=== PATIENT | female | born 1945 | race American Indian/Alaskan Native ===

== ENCOUNTER 2022-01-24 13:40 | Outpatient (CLI) | payer MEDICARE | END 2022-01-24 13:41 | disposition home or self-care (01) | LOC: WOUND 13:40 | PROVIDERS: ATTEND Surgery | DX: E10.621 Type 1 diabetes mellitus with foot ulcer (principal); L97.522 Non-pressure chronic ulcer of other part of left foot with fat layer exposed; I10 Essential (primary) hypertension; F32.9 Major depressive disorder, single episode, unspecified; Z86.16 Personal history of COVID-19; Z79.4 Long term (current) use of insulin; Z79.899 Other long term (current) drug therapy ==

== ENCOUNTER 2022-02-07 13:11 | Outpatient (CLI) | payer MEDICARE ==
[2022-02-07] MEDS ORDERED: LIDOCAINE (4%) 40 MG/ML TOPICAL SOLN 50 ML BOTTLE TP ONE (13:39)
== END 2022-02-07 13:12 | disposition home or self-care (01) ==
LOC: WOUND 13:11
PROVIDERS: ATTEND Surgery
DX: E10.621 Type 1 diabetes mellitus with foot ulcer (principal); L97.522 Non-pressure chronic ulcer of other part of left foot with fat layer exposed; I10 Essential (primary) hypertension; Z79.4 Long term (current) use of insulin; Z79.899 Other long term (current) drug therapy

== ENCOUNTER 2022-02-21 11:43 | Outpatient (CLI) | payer MEDICARE ==
[2022-02-21] MEDS ORDERED: LIDOCAINE (4%) 40 MG/ML TOPICAL SOLN 50 ML BOTTLE TP ONE (13:38)
== END 2022-02-21 11:44 | disposition home or self-care (01) ==
LOC: WOUND 11:43
PROVIDERS: ATTEND Surgery
DX: E10.621 Type 1 diabetes mellitus with foot ulcer (principal); L97.522 Non-pressure chronic ulcer of other part of left foot with fat layer exposed; I10 Essential (primary) hypertension; Z79.4 Long term (current) use of insulin; Z79.899 Other long term (current) drug therapy

== ENCOUNTER 2022-03-07 13:31 | Outpatient (CLI) | payer MEDICARE ==
[2022-03-07] MEDS ORDERED: LIDOCAINE (4%) 40 MG/ML TOPICAL SOLN 50 ML BOTTLE TP SCH (14:30)
== END 2022-03-07 13:32 | disposition home or self-care (01) ==
LOC: WOUND 13:31
PROVIDERS: ATTEND Surgery
DX: E10.621 Type 1 diabetes mellitus with foot ulcer (principal); L97.522 Non-pressure chronic ulcer of other part of left foot with fat layer exposed; I10 Essential (primary) hypertension; Z79.4 Long term (current) use of insulin; Z79.899 Other long term (current) drug therapy

== ENCOUNTER 2022-05-01 01:27 | Inpatient (IN) | payer MEDICAID, MEDICARE ==
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
[2022-05-01 03:20] LABS: Basophils # (Auto) 0.1 K/mm3 (0.0-0.1); Basophils % (Auto) 1.3 % (0.0-1.8); Eosinophils # (Auto) 0.2 K/mm3 (0.0-0.4); Eosinophils % (Auto) 1.9 % (0.0-4.3); Hematocrit 35.8 % (30.3-42.9); Hemoglobin 11.5 gm/dl (10.1-14.3); Lymphocytes # (Auto) 2.2 K/mm3 (1.2-5.4); Lymphocytes % (Auto) 22.2 % (13.4-35.0); Mean Corpuscular HGB Conc 32 % (30-34); Mean Corpuscular Volume 79 fl (79-97); Monocytes % (Auto) 10.3 % (0.0-7.3); Platelet Count 388 K/mm3 (140-440); Red Blood Count 4.52 M/mm3 (3.65-5.03)
[2022-05-01 03:43] LABS: Albumin 3.5 g/dL (3.9-5)
[2022-05-01] MEDS ORDERED: SODIUM CHLORIDE 0.9% 1000 ML 1,000 ML IV ONE (06:25)
[2022-05-01 09:20] LABS: Hyaline Casts,Urine 1 /LPF; Mucus,Urine FEW /HPF
[2022-05-01 09:25] LABS: Color,Urine Yellow (Yellow)
[2022-05-01] MEDS ORDERED: NIFEDIPINE 30 MG PO SCH (20:00)
[2022-05-01] MEDS ORDERED: NON-FORMULARY EACH (Simvastatin 20 MG) PO SCH (22:00)
[2022-05-01] MEDS ORDERED: SEROQUEL 25 MG PO SCH (22:00)
[2022-05-01] MEDS ORDERED: DONEPEZIL 10 MG PO SCH (22:00)
[2022-05-01] MEDS ORDERED: METHIMAZOLE 5 MG PO SCH (22:00)
[2022-05-01] MEDS ORDERED: NON-FORMULARY EACH (Carvedilol 25 MG) PO SCH (22:00)
[2022-05-02] MEDS: DONEPEZIL 10 MG TAB PO SCH ×2 (00:02→23:44)
[2022-05-02] MEDS: carvediloL 25 MG TAB PO SCH ×3 (00:03→23:44)
[2022-05-02] MEDS: NIFEdipine XL 30 MG TAB PO SCH ×2 (00:03→10:59)
[2022-05-02] MEDS: methIMAzole 5 MG TAB PO SCH ×3 (00:03→23:45)
[2022-05-02] MEDS: PRAVASTATIN 40 MG TAB PO SCH ×2 (00:04→23:44)
[2022-05-02] MEDS: QUEtiapine 25 MG TAB PO SCH ×3 (00:05→23:44)
[2022-05-02] MEDS ORDERED: VALPROIC ACID 250 MG/5 ML ORAL LIQD PO ONE (12:51)
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
[2022-05-02] MEDS: VALPROIC ACID 250 MG/5 ML ORAL LIQD PO SCH (18:26)
[2022-05-03 00:07] LABS: Amphetamine Screen,Urine PRESUMPTIVE NEGATIVE; Benzodiazepines Screen,Urine PRESUMPTIVE NEGATIVE; Cannabinoid Screen,Urine PRESUMPTIVE NEGATIVE; Cocaine Screen,Urine PRESUMPTIVE NEGATIVE; Methadone Screen,Urine PRESUMPTIVE NEGATIVE; Opiate Screen,Urine PRESUMPTIVE NEGATIVE
--- NOTE | 2022-05-03 07:38 | Event Note ---
Date: 05/03/22 S: Patient refusing meds. Otherwise no events reported overnight O: Vital Signs - 8 hr 05/02/22 05/02/22 05/02/22 23:44 23:45 23:47 Temperature 97.0 F L Pulse Rate 85 73 Respiratory 18 Rate Blood Pressure 151/73 Blood Pressure 151/73 [Left] O2 Sat by Pulse 98 95 Oximetry 05/03/22 06:53 Temperature Pulse Rate 85 Respiratory 18 Rate Blood Pressure Blood Pressure 144/85 [Left] O2 Sat by Pulse 97 Oximetry A: Dementia with behavioral disturbance P: 1013/awaiting inpatient psych
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
[2022-05-03] MEDS: carvediloL 25 MG TAB PO SCH (12:47)
[2022-05-03] MEDS: NIFEdipine XL 30 MG TAB PO SCH (12:47)
[2022-05-03] MEDS: methIMAzole 5 MG TAB PO SCH (12:47)
[2022-05-03] MEDS: VALPROIC ACID 250 MG/5 ML ORAL LIQD PO SCH (12:48)
[2022-05-03] MEDS: QUEtiapine 25 MG TAB PO SCH (12:48)
[2022-05-03] MEDS ORDERED: risperiDONE 0.25 MG TAB PO SCH (22:00)
[2022-05-04] MEDS: DONEPEZIL 10 MG TAB PO SCH ×2 (02:56→22:00)
[2022-05-04] MEDS: carvediloL 25 MG TAB PO SCH ×3 (02:56→22:00)
[2022-05-04] MEDS: VALPROIC ACID 250 MG/5 ML ORAL LIQD PO SCH ×3 (02:56→22:00)
[2022-05-04] MEDS: PRAVASTATIN 40 MG TAB PO SCH ×2 (02:56→22:00)
[2022-05-04] MEDS: methIMAzole 5 MG TAB PO SCH ×3 (02:57→22:00)
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
[2022-05-04] MEDS: risperiDONE 0.25 MG TAB PO SCH ×2 (10:33→22:00)
[2022-05-04] MEDS: NIFEdipine XL 30 MG TAB PO SCH (10:33)
[2022-05-04 11:19] LABS: Albumin 3.7 g/dL (3.9-5); Calcium 9.7 mg/dL (8.4-10.2)
--- NOTE | 2022-05-04 11:59 | Event Note ---
Date: 05/04/22 S: No events reported overnight O: Vital Signs - 8 hr 05/04/22 05/04/22 11:01 11:03 Temperature 98.7 F Pulse Rate 75 Respiratory 18 Rate Blood Pressure 100/63 [Left] O2 Sat by Pulse 97 97 Oximetry A: Dementia with behavioral disturbances P: 1013/awaiting inpatient psych
[2022-05-04] MEDS ORDERED: SODIUM CHLORIDE 0.9% 1000 ML 1,000 ML IV ONE ×2 (12:10)
[2022-05-04 17:35] LABS: Calcium 8.5 mg/dL (8.4-10.2)
--- NOTE | 2022-05-04 18:52 | Emergency Department Report ---
Blank Doc - Documentation Documentation: 550 76-year-old female who is being evaluated for dementia with psychotic beha vior. Patient is on a 1013, and had been accepted at a inpatient psychiatric facility pending improvement of her BUN and creatinine. However, after IV fluids, her BUN and creatinine are still stable at 44 and 2.2. With this, and no previous BUN and creatinines to compare, the patient will be admitted, here to inpatient medicine service for acute kidney injury.
[2022-05-04] MEDS ORDERED: ONDANSETRON 4 MG/2 ML INJ IV PRN (22:18)
[2022-05-04] MEDS ORDERED: ACETAMINOPHEN 325 MG TAB PO PRN (22:18)
[2022-05-04] MEDS ORDERED: oxyCODONE /ACETAMINOPHEN 5-325MG TAB PO PRN (22:23)
[2022-05-04] MEDS ORDERED: METOCLOPRAMIDE 10 MG/2 ML INJ IV PRN ×2 (22:23→22:38)
[2022-05-04] MEDS: HEPARIN 5,000 UNIT/1 ML VIAL SUB-Q SCH (23:00)
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
[2022-05-05] MEDS ORDERED: HALOPERIDOL LACTATE 5 MG/1 ML INJ IM PRN (09:00)
--- NOTE | 2022-05-05 11:14 | Consultation ---
History of Present Illness - Reason for Consult acute renal failure - History of Present Illness 76-year-old -Lithuanian female with past medical history of hypertension and what seems to be underlying psychiatric disorder, presented to emergency department secondary to worsening altered mentation and behavioral disturbances at her residence. Nephrology was consulted with labs initially concerning for an acute kidney injury. She does have documented history of hypertension and when discussed with patient she did state that she has had a previous issue with chronic kidney disease though she is unaware of the name of her previous database administration manager. Per patient she believes the database administration manager was in [place]. Unclear how good of a historian patient is at present time. Nevertheless nephrology was consulted for further management of renal injury. Past History Past Medical History: hypertension Past Surgical History: No surgical history Social history: no significant social history Family history: no significant family history Medications and Allergies Allergies Allergy/AdvReac Type Severity Reaction Status Date / Time No Known Allergies Allergy Unverified 05/01/22 08:15 Home Medications Medication Instructions Recorded Confirmed Last Taken Type Aliskiren 300 mg PO DAILY 05/01/22 05/01/22 Unknown History Methimazole 5 mg PO BID 05/01/22 05/01/22 Unknown History NIFEdipine 90 mg PO DAILY 05/01/22 05/01/22 Unknown History SEROquel 25 mg PO BID 05/01/22 05/01/22 Unknown History Simvastatin 20 mg PO DAILY 05/01/22 05/01/22 Unknown History carvediloL 25 mg PO BID 05/01/22 05/01/22 Unknown History cloNIDine 0.3 mg PO TID 05/01/22 05/01/22 Unknown History donepeziL 10 mg PO QHS 05/01/22 05/01/22 Unknown History Active Meds: Active Medications Acetaminophen (Acetaminophen 325 Mg Tab) 650 mg PO Q4H PRN PRN Reason: Pain MILD(1-3)/Fever >100.5/CUEVAS Carvedilol (Carvedilol 25 Mg Tab) 25 mg PO BID [facility] Last Admin: 05/04/22 22:00 Dose: 25 mg Donepezil HCl (Donepezil 10 Mg Tab) 10 mg PO QHS [facility] Last Admin: 05/04/22 22:00 Dose: 10 mg Haloperidol Lactate (Haloperidol Lactate 5 Mg/1 Ml Inj) 5 mg IM Q6H PRN PRN Reason: Agitation Last Admin: 05/05/22 08:30 Dose: 5 mg Heparin Sodium (Porcine) (Heparin 5,000 Unit/1 Ml Vial) 5,000 unit SUB-Q Q12HR [facility] Last Admin: 05/04/22 23:00 Dose: 5,000 unit Sodium Chloride (Nacl 0.9% 1000 Ml) 1,000 mls @ 100 mls/hr IV DIRECT [facility] Methimazole (Methimazole 5 Mg Tab) 5 mg PO BID [facility] Last Admin: 05/04/22 22:00 Dose: 5 mg Metoclopramide HCl (Metoclopramide 10 Mg/2 Ml Inj) 5 mg IV Q6H PRN PRN Reason: Nausea And Vomiting Nifedipine (Nifedipine Xl 30 Mg Tab) 30 mg PO QDAY [facility] Last Admin: 05/04/22 10:33 Dose: 30 mg Ondansetron HCl (Ondansetron 4 Mg/2 Ml Inj) 4 mg IV Q8H PRN PRN Reason: Nausea And Vomiting Oxycodone/Acetaminophen (Oxycodone /Acetaminophen 5-325mg Tab) 1 tab PO Q6H PRN PRN Reason: Pain, Moderate (4-6) Pravastatin Sodium (Pravastatin 40 Mg Tab) 40 mg PO QHS [facility] Last Admin: 05/04/22 22:00 Dose: 40 mg Risperidone (Risperidone 0.25 Mg Tab) 0.5 mg PO BID [facility] Last Admin: 05/04/22 22:00 Dose: 0.5 mg Sodium Chloride (Sodium Chloride 0.9% 10 Ml Flush Syringe) 10 ml IV BID [facility] Last Admin: 05/04/22 23:00 Dose: 10 ml Sodium Chloride (Sodium Chloride 0.9% 10 Ml Flush Syringe) 10 ml IV PRN PRN PRN Reason: LINE FLUSH Valproic Acid (Valproic Acid 250 Mg/5 Ml Oral Liqd) 125 mg PO BID [facility] Last Admin: 05/04/22 22:00 Dose: 125 mg Review of Systems ROS unobtainable: due to mental status Exam - Vital Signs Vital signs: Vital Signs Temp Pulse Resp BP Pulse Ox 98.3 F 100 H 18 170/76 100 05/01/22 01:28 05/01/22 01:28 05/01/22 01:28 05/01/22 01:28 05/01/22 01:28 - General Appearance General appearance: appears stated age, obese EENT: ATNC Neck: Present: neck supple, thyromegaly Respiratory: Clear to Ascultation Heart: regular Gastrointestinal: Present: normal Integumentary: warm and dry Neurologic: no focal deficit Musculoskeletal: Present: deferred Results - Lab Results 05/01/22 03:10 05/04/22 16:26 Most recent lab results Calcium 8.5 mg/dL (8.4-10.2) 05/04/22 16:26 Assessment and Plan - Patient Problems (1) RAYMON (acute kidney injury) Current Visit: Yes Status: Acute Plan to address problem: possibly prerenal in etiology. Will obtain renal ultrasound. urinalysis reviewed without any significant issues. we will obtain urine electrolytes along with a renal ultrasound at this time. Would recommend gentle IV fluid hydration and monitor response. Avoid nephrotoxins and maintain mean ocular pressures above 65 mmHg. We will follow closely. (2) Agitation due to dementia Current Visit: Yes Status: Chronic Plan to address problem: patient was pending placement at a geriatric psychiatry. Management per primary team. (3) HTN (hypertension) Current Visit: Yes Status: Chronic Qualifiers: Hypertension type: primary hypertension Qualified Code(s): I10 - Essential (primary) hypertension Plan to address problem: monitor blood pressures under current regimen. 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
[2022-05-05] MEDS: risperiDONE 0.25 MG TAB PO SCH ×2 (11:31→21:43)
[2022-05-05] MEDS: HEPARIN 5,000 UNIT/1 ML VIAL SUB-Q SCH ×2 (11:32→21:45)
[2022-05-05] MEDS: NIFEdipine XL 30 MG TAB PO SCH (11:32)
[2022-05-05] MEDS: VALPROIC ACID 250 MG/5 ML ORAL LIQD PO SCH ×2 (11:32→21:42)
[2022-05-05] MEDS: carvediloL 25 MG TAB PO SCH ×2 (11:33→21:44)
[2022-05-05] MEDS: SODIUM CHLORIDE 0.9% 1000 ML 1,000 ML IV SCH ×2 (11:46→21:48)
--- NOTE | 2022-05-05 14:20 | Progress Note ---
Subjective - Reason for Consult Consult date: 05/05/22 Reason for consult: psychosis - Chief Complaint Chief complaint: The patient was seen today. She is asleep and difficult to engage in the evaluation. She says "I'm so tired." The sitter says the patient has been hyperverbal and talking about a lot of different things at once. She says the patient hasn't been making sense and has been talking to herself a lot. REVIEW OF SYSTEMS Unable to assess MENTAL STATUS EXAMINATION Unable to assess Assessment and Plan (1) Dementia with Behavioral Disturbance Treatment Plan 1013 Valproic 125mg BID Risperidone 0.5mgpo BID Risks, benefits and alternatives of medications discussed with the patient, questions answered and consent obtained from patient. PSYCHOTHERAPY: Supportive psychotherapy provided MEDICAL: Per primary team DELIRIUM PRECAUTIONS: Please re-orient patient frequently, keep lights on during the day, and minimize benzodiazepines and opiates as these medications could worsen patient's confusion. MANAGER TRUCK: Defer to primary DISPOSITION: Recommend acute inpatient psychiatric hospitalization at this time. FOLLOW-UP: Will follow. Thank you for the consult. Please contact with any questions and/or concerns Case discussed with Dr. Ceron who agrees with current disposition Mental Status Exam - Vital signs Last Vital Signs Temp 98.5 F 05/05/22 11:19 Pulse 77 05/05/22 11:19 Resp 18 05/05/22 11:19 BP 141/67 05/05/22 11:19 Pulse Ox 100 05/05/22 06:00
[2022-05-05 15:28] LABS: Albumin 3.5 g/dL (3.9-5); Calcium 9.2 mg/dL (8.4-10.2)
[2022-05-05 15:33] LABS: Basophils # (Auto) 0.1 K/mm3 (0.0-0.1); Basophils % (Auto) 0.7 % (0.0-1.8); Eosinophils # (Auto) 0.2 K/mm3 (0.0-0.4); Eosinophils % (Auto) 3.2 % (0.0-4.3); Hematocrit 38.8 % (30.3-42.9); Lymphocytes # (Auto) 1.9 K/mm3 (1.2-5.4); Lymphocytes % (Auto) 26.5 % (13.4-35.0); Mean Corpuscular HGB Conc 31 % (30-34); Mean Corpuscular Volume 81 fl (79-97); Monocytes # (Auto) 0.7 K/mm3 (0.0-0.8); Monocytes % (Auto) 10.3 % (0.0-7.3); Platelet Count 375 K/mm3 (140-440); Red Cell Distribution Width 15.9 % (13.2-15.2)
[2022-05-05] MEDS: methIMAzole 5 MG TAB PO SCH ×2 (17:45→21:44)
[2022-05-05] MEDS ORDERED: DEXTROSE 50% IN WATER (25GM) 50 ML SYRINGE IV PRN ×2 (18:24→18:47)
[2022-05-05] MEDS: INSULIN LISPRO 100 UNIT/ML SUB-Q SCH ×2 (19:32→21:45)
[2022-05-05] MEDS: PRAVASTATIN 40 MG TAB PO SCH (21:44)
[2022-05-05] MEDS: DONEPEZIL 10 MG TAB PO SCH (21:44)
[2022-05-05] MEDS ORDERED: INSULIN LISPRO 100 UNIT/ML SUB-Q SCH (22:00)
[2022-05-06] MEDS: INSULIN LISPRO 100 UNIT/ML SUB-Q SCH ×4 (08:00→22:00)
[2022-05-06 10:59] LABS: BUN/Creatinine Ratio 18; Blood Urea Nitrogen 18 mg/dL (7-17); Calcium 9.2 mg/dL (8.4-10.2); Hemolysis Index 5
[2022-05-06] MEDS: carvediloL 25 MG TAB PO SCH ×2 (12:02→21:56)
[2022-05-06] MEDS: HEPARIN 5,000 UNIT/1 ML VIAL SUB-Q SCH ×2 (12:02→22:00)
[2022-05-06] MEDS: methIMAzole 5 MG TAB PO SCH ×2 (12:02→21:56)
[2022-05-06] MEDS: NIFEdipine XL 30 MG TAB PO SCH (12:02)
[2022-05-06] MEDS: VALPROIC ACID 250 MG/5 ML ORAL LIQD PO SCH ×2 (12:02→21:57)
[2022-05-06] MEDS: risperiDONE 0.25 MG TAB PO SCH (12:02)
[2022-05-06] MEDS: SODIUM CHLORIDE 0.9% 1000 ML 1,000 ML IV SCH ×2 (12:03→22:09)
--- NOTE | 2022-05-06 12:38 | Progress Note ---
Assessment and Plan Assessment and plan: 76-year-old -Nauruan female with past medical history of hypertension and what seems to be underlying psychiatric disorder, presented to emergency department secondary to worsening altered mentation and behavioral disturbances at her residence. The patient was admitted with diagnosis below Acute kidney injury Dementia with behavioral disturbance Diabetes mellitus type 2 Hypertension 05/06/2022. Nephrology was consulted with labs initially concerning for an acute kidney injury. She does have documented history of hypertension and when discussed with patient she did state that she has had a previous issue with chronic kidney disease though she is unaware of the name of her previous n ephrologist. Per patient she believes the client application support engineer was in [place]. Unclear how good of a historian patient is at present time. Follow-up renal ultrasound. Continue 1013. Continue valproic 125 mg twice daily, risperidone 0.5 mg p.o. twice daily and await for acute inpatient psychiatric h ospitalization. History Interval history: No new issues overnight Hospitalist Physical - Constitutional Vitals: Temp Pulse Resp BP Pulse Ox 98.2 F 77 18 189/84 95 05/06/22 08:39 05/06/22 08:39 05/06/22 08:39 05/06/22 08:39 05/06/22 08:39 General appearance: Present: no acute distress, well-nourished - EENT Eyes: Present: PERRL, EOM intact ENT: hearing intact, clear oral mucosa, dentition normal - Neck Neck: Present: supple, normal ROM - Respiratory Respiratory effort: normal Respiratory: bilateral: CTA - Cardiovascular Rhythm: regular Heart Sounds: Present: S1 & S2. Absent: gallop, rub - Extremities Extremities: no ischemia, No edema, Full ROM - Abdominal General gastrointestinal: soft, non-tender, non-distended, normal bowel sounds - Integumentary Integumentary: Present: clear, warm, dry - Neurologic Neurologic: CNII-XII intact, moves all extremities Results - Labs CBC & Chem 7: 05/05/22 14:12 05/06/22 10:22 Labs: Laboratory Last Values WBC 7.2 K/mm3 (4.5-11.0) 05/05/22 14:12 RBC 4.80 M/mm3 (3.65-5.03) 05/05/22 14:12 Hgb 12.0 gm/dl (10.1-14.3) 05/05/22 14:12 Hct 38.8 % (30.3-42.9) 05/05/22 14:12 MCV 81 fl (79-97) 05/05/22 14:12 MCH 25 pg (28-32) L 05/05/22 14:12 MCHC 31 % (30-34) 05/05/22 14:12 RDW 15.9 % (13.2-15.2) H 05/05/22 14:12 Plt Count 375 K/mm3 (140-440) 05/05/22 14:12 Lymph % (Auto) 26.5 % (13.4-35.0) 05/05/22 14:12 Waldo % (Auto) 10.3 % (0.0-7.3) H 05/05/22 14:12 Eos % (Auto) 3.2 % (0.0-4.3) 05/05/22 14:12 Baso % (Auto) 0.7 % (0.0-1.8) 05/05/22 14:12 Lymph # (Auto) 1.9 K/mm3 (1.2-5.4) 05/05/22 14:12 Waldo # (Auto) 0.7 K/mm3 (0.0-0.8) 05/05/22 14:12 Eos # (Auto) 0.2 K/mm3 (0.0-0.4) 05/05/22 14:12 Baso # (Auto) 0.1 K/mm3 (0.0-0.1) 05/05/22 14:12 Seg Neutrophils % 59.3 % (40.0-70.0) 05/05/22 14:12 Seg Neutrophils # 4.3 K/mm3 (1.8-7.7) 05/05/22 14:12 Sodium 141 mmol/L (137-145) 05/06/22 10:22 Potassium 4.0 mmol/L (3.6-5.0) 05/06/22 10:22 Chloride 106.0 mmol/L (98-107) 05/06/22 10:22 Carbon Dioxide 24 mmol/L (22-30) 05/06/22 10:22 Anion Gap 15 mmol/L 05/06/22 10:22 BUN 18 mg/dL (7-17) H 05/06/22 10:22 Creatinine 1.0 mg/dL (0.6-1.2) 05/06/22 10:22 Estimated GFR > 60 ml/min 05/06/22 10:22 BUN/Creatinine Ratio 18 % 05/06/22 10:22 Glucose 204 mg/dL (65-100) H 05/06/22 10:22 POC Glucose 166 mg/dL (70-105) H 05/05/22 21:35 Calcium 9.2 mg/dL (8.4-10.2) 05/06/22 10:22 Total Bilirubin 0.30 mg/dL (0.1-1.2) 05/05/22 14:12 AST 16 units/L (5-40) 05/05/22 14:12 ALT 15 units/L (7-56) 05/05/22 14:12 Alkaline Phosphatase 101 units/L (35-129) 05/05/22 14:12 Total Protein 6.3 g/dL (6.3-8.2) 05/05/22 14:12 Albumin 3.5 g/dL (3.9-5) L 05/05/22 14:12 Albumin/Globulin Ratio 1.3 % 05/05/22 14:12 TSH 0.400 mlU/mL (0.270-4.200) 05/01/22 15:42 Urine Color Yellow (Yellow) 05/01/22 Unknown Urine Turbidity Clear (Clear) 05/01/22 Unknown Specific [place] (Man) 1.030 (1.003-1.030) 05/01/22 Unknown Ur Protein (Man) 1+ mg/dL (Negative) 05/01/22 Unknown Ur Ketones (Man) Negative (Negative) 05/01/22 Unknown Ur Reducing Substances Not Reportable 05/01/22 Unknown Urine Bilirubin (Man) Negative (Negative) 05/01/22 Unknown Urine WBC (Auto) 1.0 /HPF (0.0-6.0) 05/01/22 Unknown Urine RBC (Auto) 2.0 /HPF (0.0-6.0) 05/01/22 Unknown U Epithel Cells (Auto) 1.0 /HPF (0-13.0) 05/01/22 Unknown Urine RBC (Manual) Negative (Negative) 05/01/22 Unknown Hyaline Casts 1 /LPF 05/01/22 Unknown Urine Mucus Few /HPF 05/01/22 Unknown Salicylates < 0.3 mg/dL (2.8-20.0) L 05/01/22 15:42 Urine Opiates Screen Presumptive negative 05/02/22 23:53 Urine Methadone Screen Presumptive negative 05/02/22 23:53 Acetaminophen 5.0 ug/mL (10.0-30.0) L 05/01/22 15:42 Ur Barbiturates Screen Presumptive negative 05/02/22 23:53 Ur Phencyclidine Scrn Presumptive negative 05/02/22 23:53 Ur Amphetamines Screen Presumptive negative 05/02/22 23:53 U Benzodiazepines Scrn Presumptive negative 05/02/22 23:53 Urine Cocaine Screen Presumptive negative 05/02/22 23:53 U Marijuana (THC) Screen Presumptive negative 05/02/22 23:53 Drugs of Abuse Note Disclamer 05/02/22 23:53 SARS-CoV-2 (PCR) Negative (Negative) 05/03/22 08:16 Loya/IV: Voiding Method Incontinent Active Medications - Current Medications Current Medications: Generic Name Dose Route Start Last Admin Trade Name Freq PRN Reason Stop Dose Admin Acetaminophen 650 mg 05/04/22 22:18 Acetaminophen 325 Mg Tab PO Q4H PRN Pain MILD(1-3)/Fever >100.5/CUEVAS Carvedilol 25 mg 05/01/22 22:00 05/06/22 12:02 Carvedilol 25 Mg Tab PO 25 mg BID TOÑO Administration Dextrose 50 ml 05/05/22 18:47 Dextrose 50% In Water (25gm) 50 Ml Syringe IV Q30MIN PRN Hypoglycemia Protocol Donepezil HCl 10 mg 05/01/22 22:00 05/05/22 21:44 Donepezil 10 Mg Tab PO 10 mg QHS TOÑO Administration Haloperidol Lactate 5 mg 05/05/22 09:00 05/05/22 08:30 Haloperidol Lactate 5 Mg/1 Ml Inj IM 5 mg Q6H PRN Administration Agitation Heparin Sodium (Porcine) 5,000 unit 05/04/22 22:45 05/06/22 12:02 Heparin 5,000 Unit/1 Ml Vial SUB-Q 5,000 unit Q12HR TOÑO Administration Sodium Chloride 1,000 mls @ 100 mls/hr 05/04/22 22:30 05/06/22 12:03 Nacl 0.9% 1000 Ml IV 100 mls/hr DIRECT TOÑO Administration Insulin Human Lispro 0 unit 05/05/22 18:47 05/06/22 08:00 Insulin Lispro 100 Unit/Ml SUB-Q Not Given ACHS TOÑO Protocol Methimazole 5 mg 05/01/22 22:00 05/06/22 12:02 Methimazole 5 Mg Tab PO 5 mg BID TOÑO Administration Metoclopramide HCl 5 mg 05/04/22 22:38 Metoclopramide 10 Mg/2 Ml Inj IV Q6H PRN Nausea And Vomiting Nifedipine 30 mg 05/01/22 20:00 05/06/22 12:02 Nifedipine Xl 30 Mg Tab PO 30 mg QDAY TOÑO Administration Ondansetron HCl 4 mg 05/04/22 22:18 Ondansetron 4 Mg/2 Ml Inj IV Q8H PRN Nausea And Vomiting Oxycodone/Acetaminophen 1 tab 05/04/22 22:23 Oxycodone /Acetaminophen 5-325mg Tab PO Q6H PRN Pain, Moderate (4-6) Pravastatin Sodium 40 mg 05/01/22 22:00 05/05/22 21:44 Pravastatin 40 Mg Tab PO 40 mg QHS TOÑO Administration Risperidone 0.5 mg 05/04/22 10:00 05/06/22 12:02 Risperidone 0.25 Mg Tab PO 0.5 mg BID TOÑO Administration Sodium Chloride 10 ml 05/04/22 23:00 05/06/22 12:05 Sodium Chloride 0.9% 10 Ml Flush Syringe IV 10 ml BID TOÑO Administration Sodium Chloride 10 ml 05/04/22 22:18 Sodium Chloride 0.9% 10 Ml Flush Syringe IV PRN PRN LINE FLUSH Valproic Acid 125 mg 05/03/22 22:00 05/06/22 12:02 Valproic Acid 250 Mg/5 Ml Oral Liqd PO 125 mg BID TOÑO Administration
--- NOTE | 2022-05-06 13:01 | Progress Note ---
Assessment and Plan - Patient Problems (1) RAYMON (acute kidney injury) Current Visit: Yes Status: Acute Plan to address problem: possibly prerenal in etiology. renal ultrasound is pending at this time. urinalysis reviewed without any significant issues. Would recommend gentle IV fluid hydration and monitor response. Avoid nephrotoxins and maintain mean ocular pressures above 65 mmHg. We will follow closely. renal function is showing improvement today. (2) Agitation due to dementia Current Visit: Yes Status: Chronic Plan to address problem: patient was pending placement at a geriatric psychiatry. Management per primary team. (3) HTN (hypertension) Current Visit: Yes Status: Chronic Qualifiers: Hypertension type: primary hypertension Qualified Code(s): I10 - Essential (primary) hypertension Plan to address problem: monitor blood pressures under current regimen. 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 Subjective Date of service: 05/06/22 Interval history: no acute issues overnight. Labs reviewed and renal function is stabilizing at this time. She continues on gentle IV fluid hydration. Objective - Vital Signs Vital signs: Vital Signs - 12hr 05/06/22 05/06/22 05/06/22 01:15 04:57 08:39 Temperature 98.3 F 98.2 F Pulse Rate 77 77 Respiratory 18 18 Rate Blood Pressure 148/66 189/84 O2 Sat by Pulse 95 99 95 Oximetry - General Appearance General appearance: appears stated age EENT: ATNC Neck: no JVD Respiratory: Present: Clear to Ascultation Cardiology: regular Gastrointestinal: normal Integumentary: no rash Neurologic: no focal deficit Musculoskeletal: deferred Psychiatric: cooperative - Lab 05/05/22 14:12 05/06/22 10:22 Most recent lab results Calcium 9.2 mg/dL (8.4-10.2) 05/06/22 10:22 - Allied health notes Allied health notes reviewed: nursing Medications & Allergies - Medications Allergies/Adverse Reactions: Allergies No Known Allergies Allergy (Unverified 05/01/22 08:15) Home Medications: Home Medications Medication Instructions Recorded Confirmed Last Taken Type Aliskiren 300 mg PO DAILY 05/01/22 05/01/22 Unknown History Methimazole 5 mg PO BID 05/01/22 05/01/22 Unknown History NIFEdipine 90 mg PO DAILY 05/01/22 05/01/22 Unknown History SEROquel 25 mg PO BID 05/01/22 05/01/22 Unknown History Simvastatin 20 mg PO DAILY 05/01/22 05/01/22 Unknown History carvediloL 25 mg PO BID 05/01/22 05/01/22 Unknown History cloNIDine 0.3 mg PO TID 05/01/22 05/01/22 Unknown History donepeziL 10 mg PO QHS 05/01/22 05/01/22 Unknown History Insulin NPH Hum/Reg Insulin Hm 5 SQ QPM 05/05/22 Unknown History [Novolin 70-30 100 Unit/ml Vial] Insulin NPH Hum/Reg Insulin Hm 40 SQ QAM 05/05/22 Unknown History [Novolin 70-30 100 Unit/ml Vial] Active Medications: Generic Name Dose Route Start Last Admin Trade Name Freq PRN Reason Stop Dose Admin Acetaminophen 650 mg 05/04/22 22:18 Acetaminophen 325 Mg Tab PO Q4H PRN Pain MILD(1-3)/Fever >100.5/CUEVAS Carvedilol 25 mg 05/01/22 22:00 05/06/22 12:02 Carvedilol 25 Mg Tab PO 25 mg BID TOÑO Administration Dextrose 50 ml 05/05/22 18:47 Dextrose 50% In Water (25gm) 50 Ml Syringe IV Q30MIN PRN Hypoglycemia Protocol Donepezil HCl 10 mg 05/01/22 22:00 05/05/22 21:44 Donepezil 10 Mg Tab PO 10 mg QHS TOÑO Administration Haloperidol Lactate 5 mg 05/05/22 09:00 05/05/22 08:30 Haloperidol Lactate 5 Mg/1 Ml Inj IM 5 mg Q6H PRN Administration Agitation Heparin Sodium (Porcine) 5,000 unit 05/04/22 22:45 05/06/22 12:02 Heparin 5,000 Unit/1 Ml Vial SUB-Q 5,000 unit Q12HR TOÑO Administration Sodium Chloride 1,000 mls @ 100 mls/hr 05/04/22 22:30 05/06/22 12:03 Nacl 0.9% 1000 Ml IV 100 mls/hr DIRECT TOÑO Administration Insulin Human Lispro 0 unit 05/05/22 18:47 05/06/22 08:00 Insulin Lispro 100 Unit/Ml SUB-Q Not Given ACHS TOÑO Protocol Methimazole 5 mg 05/01/22 22:00 05/06/22 12:02 Methimazole 5 Mg Tab PO 5 mg BID TOÑO Administration Metoclopramide HCl 5 mg 05/04/22 22:38 Metoclopramide 10 Mg/2 Ml Inj IV Q6H PRN Nausea And Vomiting Nifedipine 30 mg 05/01/22 20:00 05/06/22 12:02 Nifedipine Xl 30 Mg Tab PO 30 mg QDAY TOÑO Administration Ondansetron HCl 4 mg 05/04/22 22:18 Ondansetron 4 Mg/2 Ml Inj IV Q8H PRN Nausea And Vomiting Oxycodone/Acetaminophen 1 tab 05/04/22 22:23 Oxycodone /Acetaminophen 5-325mg Tab PO Q6H PRN Pain, Moderate (4-6) Pravastatin Sodium 40 mg 05/01/22 22:00 05/05/22 21:44 Pravastatin 40 Mg Tab PO 40 mg QHS TOÑO Administration Risperidone 0.5 mg 05/04/22 10:00 05/06/22 12:02 Risperidone 0.25 Mg Tab PO 0.5 mg BID TOÑO Administration Sodium Chloride 10 ml 05/04/22 23:00 05/06/22 12:05 Sodium Chloride 0.9% 10 Ml Flush Syringe IV 10 ml BID TOÑO Administration Sodium Chloride 10 ml 05/04/22 22:18 Sodium Chloride 0.9% 10 Ml Flush Syringe IV PRN PRN LINE FLUSH Valproic Acid 125 mg 05/03/22 22:00 05/06/22 12:02 Valproic Acid 250 Mg/5 Ml Oral Liqd PO 125 mg BID TOÑO Administration
--- NOTE | 2022-05-06 14:47 | Progress Note ---
Subjective - Reason for Consult Consult date: 05/06/22 Reason for consult: delusional, hallucinations - Chief Complaint Chief complaint: The patient was seen today. She is asleep and difficult to arouse. A sitter is at bedside. The sitter says the patient has been talking nonsensically and talking to herself a lot. The nurse caring for the patient also states that the patient has been talking to herself, and not eating. REVIEW OF SYSTEMS Unable to assess MENTAL STATUS EXAMINATION Unable to assess Assessment and Plan (1) Dementia with Behavioral Disturbance Treatment Plan 1013 Valproic 125mg BID Increase Risperidone 1mgpo BID Mirtazepine 7.5mg po qhs to induce sleep and stimulate appetite. Risks, benefits and alternatives of medications discussed with the patient, questions answered and consent obtained from patient. PSYCHOTHERAPY: Supportive psychotherapy provided MEDICAL: Per primary team DELIRIUM PRECAUTIONS: Please re-orient patient frequently, keep lights on during the day, and minimize benzodiazepines and opiates as these medications could worsen patient's confusion. DRUG DISCOVERY INFORMATICS SPECIALIST: Defer to primary DISPOSITION: Recommend acute inpatient psychiatric hospitalization at this time. FOLLOW-UP: Will follow. Thank you for the consult. Please contact with any questions and/or concerns Case discussed with Dr. Ceron who agrees with current disposition Mental Status Exam - Vital signs Last Vital Signs Temp 97.8 F 05/06/22 13:00 Pulse 81 05/06/22 13:00 Resp 18 05/06/22 13:00 BP 163/79 05/06/22 13:00 Pulse Ox 93 05/06/22 13:00
--- NOTE | 2022-05-06 16:32 | Ultrasound Report ---
ULTRASOUND RENAL INDICATION / CLINICAL INFORMATION: RAYMON. COMPARISON: None available. FINDINGS: RIGHT KIDNEY: Length = 10.6 cm. - Echogenicity: Normal. - Parenchymal Thickness: Normal. - Hydronephrosis: None. - Cyst / Mass: None. - Stones: None seen. LEFT KIDNEY: Length = 8.9 cm. - Echogenicity: Normal. - Parenchymal Thickness: Normal. - Hydronephrosis: None. - Cyst / Mass: None. - Stones: None seen. URINARY BLADDER: No significant abnormality. FREE FLUID: None. ADDITIONAL FINDINGS: Incidental finding of a gallbladder filled with stones. IMPRESSION: 1. No acute sonographic abnormality of the kidneys. 2. Cholelithiasis without sonographic evidence of acute cholecystitis. Scribed by: Paulette Jung RDMS, RVT, JORGE Scribed: 05/06/2022 2:47 PM I have reviewed the images, agree with this report, and edited this report as needed. Signer Name: Martin Corral MD Signed: 05/06/2022 4:28 PM Workstation Name: [email or web address]
[2022-05-06] MEDS: MIRTAZAPINE 15 MG TAB PO SCH (21:56)
[2022-05-06] MEDS: PRAVASTATIN 40 MG TAB PO SCH (21:56)
[2022-05-06] MEDS: risperiDONE 1 MG TAB PO SCH (21:56)
[2022-05-06] MEDS: DONEPEZIL 10 MG TAB PO SCH (21:57)
[2022-05-07 05:28] LABS: Basophils # (Auto) 0.1 K/mm3 (0.0-0.1); Basophils % (Auto) 1.3 % (0.0-1.8); Eosinophils # (Auto) 0.2 K/mm3 (0.0-0.4); Eosinophils % (Auto) 3.2 % (0.0-4.3); Hematocrit 36.3 % (30.3-42.9); Hemoglobin 11.4 gm/dl (10.1-14.3); Lymphocytes % (Auto) 26.8 % (13.4-35.0); Mean Corpuscular HGB Conc 31 % (30-34); Mean Corpuscular Volume 81 fl (79-97); Monocytes # (Auto) 0.8 K/mm3 (0.0-0.8); Monocytes % (Auto) 10.2 % (0.0-7.3); Platelet Count 357 K/mm3 (140-440); Red Blood Count 4.49 M/mm3 (3.65-5.03); Red Cell Distribution Width 15.6 % (13.2-15.2)
[2022-05-07 05:42] LABS: Calcium 8.6 mg/dL (8.4-10.2)
[2022-05-07] MEDS: risperiDONE 1 MG TAB PO SCH ×2 (09:26→21:10)
[2022-05-07] MEDS: carvediloL 25 MG TAB PO SCH ×2 (09:26→21:11)
[2022-05-07] MEDS: VALPROIC ACID 250 MG/5 ML ORAL LIQD PO SCH ×2 (09:26→21:12)
[2022-05-07] MEDS: NIFEdipine XL 30 MG TAB PO SCH (09:26)
[2022-05-07] MEDS: methIMAzole 5 MG TAB PO SCH ×2 (09:26→21:12)
[2022-05-07] MEDS: HEPARIN 5,000 UNIT/1 ML VIAL SUB-Q SCH ×2 (09:26→21:12)
[2022-05-07] MEDS: INSULIN LISPRO 100 UNIT/ML SUB-Q SCH ×4 (09:29→22:00)
--- NOTE | 2022-05-07 12:38 | Progress Note ---
Assessment and Plan Assessment and plan: 76-year-old -[place] female with past medical history of hypertension and what seems to be underlying psychiatric disorder, presented to emergency department secondary to worsening altered mentation and behavioral disturbances at her residence. The patient was admitted with diagnosis below Acute kidney injury Dementia with behavioral disturbance Diabetes mellitus type 2 Hypertension Cholelithiasis 05/06/2022. Nephrology was consulted with labs initially concerning for an acute kidney injury. She does have documented history of hypertension and when discussed with patient she did state that she has had a previous issue with chronic kidney disease though she is unaware of the name of her previous golf caddy. Per patient she believes the golf caddy was in [place]. Unclear how good of a historian patient is at present time. Follow-up renal ultrasound. Continue 1013. Continue valproic 125 mg twice daily, risperidone 0.5 mg p.o. twice daily and await for acute inpatient psychiatric hospitalization. 05/07/2022. Renal ultrasound is negative. Psychiatry still recommends 1013. Continue current medications. Await for acute inpatient psychiatric hospitalization History Interval history: No new issues overnight Hospitalist Physical - Constitutional Vitals: Temp Pulse Resp BP Pulse Ox 97.7 F 73 18 124/72 98 05/07/22 08:31 05/07/22 08:31 05/07/22 08:31 05/07/22 08:31 05/07/22 08:31 General appearance: Present: no acute distress, well-nourished - EENT Eyes: Present: PERRL, EOM intact ENT: hearing intact, clear oral mucosa, dentition normal - Neck Neck: Present: supple, normal ROM - Respiratory Respiratory effort: normal Respiratory: bilateral: CTA - Cardiovascular Rhythm: regular Heart Sounds: Present: S1 & S2. Absent: gallop, rub - Extremities Extremities: no ischemia, No edema, Full ROM - Abdominal General gastrointestinal: soft, non-tender, non-distended, normal bowel sounds - Integumentary Integumentary: Present: clear, warm, dry - Neurologic Neurologic: CNII-XII intact, moves all extremities Results - Labs CBC & Chem 7: 05/07/22 04:55 05/07/22 04:55 Labs: Laboratory Last Values WBC 7.4 K/mm3 (4.5-11.0) 05/07/22 04:55 RBC 4.49 M/mm3 (3.65-5.03) 05/07/22 04:55 Hgb 11.4 gm/dl (10.1-14.3) 05/07/22 04:55 Hct 36.3 % (30.3-42.9) 05/07/22 04:55 MCV 81 fl (79-97) 05/07/22 04:55 MCH 25 pg (28-32) L 05/07/22 04:55 MCHC 31 % (30-34) 05/07/22 04:55 RDW 15.6 % (13.2-15.2) H 05/07/22 04:55 Plt Count 357 K/mm3 (140-440) 05/07/22 04:55 Lymph % (Auto) 26.8 % (13.4-35.0) 05/07/22 04:55 [place] % (Auto) 10.2 % (0.0-7.3) H 05/07/22 04:55 Eos % (Auto) 3.2 % (0.0-4.3) 05/07/22 04:55 Baso % (Auto) 1.3 % (0.0-1.8) 05/07/22 04:55 Lymph # (Auto) 2.0 K/mm3 (1.2-5.4) 05/07/22 04:55 [place] # (Auto) 0.8 K/mm3 (0.0-0.8) 05/07/22 04:55 Eos # (Auto) 0.2 K/mm3 (0.0-0.4) 05/07/22 04:55 Baso # (Auto) 0.1 K/mm3 (0.0-0.1) 05/07/22 04:55 Seg Neutrophils % 58.5 % (40.0-70.0) 05/07/22 04:55 Seg Neutrophils # 4.3 K/mm3 (1.8-7.7) 05/07/22 04:55 Sodium 141 mmol/L (137-145) 05/07/22 04:55 Potassium 4.7 mmol/L (3.6-5.0) 05/07/22 04:55 Chloride 106.9 mmol/L (98-107) 05/07/22 04:55 Carbon Dioxide 21 mmol/L (22-30) L 05/07/22 04:55 Anion Gap 18 mmol/L 05/07/22 04:55 BUN 19 mg/dL (7-17) H 05/07/22 04:55 Creatinine 1.3 mg/dL (0.6-1.2) H 05/07/22 04:55 Estimated GFR 48 ml/min 05/07/22 04:55 BUN/Creatinine Ratio 15 % 05/07/22 04:55 Glucose 161 mg/dL (65-100) H 05/07/22 04:55 POC Glucose 214 mg/dL (70-105) H 05/07/22 09:28 Calcium 8.6 mg/dL (8.4-10.2) 05/07/22 04:55 Total Bilirubin 0.30 mg/dL (0.1-1.2) 05/05/22 14:12 AST 16 units/L (5-40) 05/05/22 14:12 ALT 15 units/L (7-56) 05/05/22 14:12 Alkaline Phosphatase 101 units/L (35-129) 05/05/22 14:12 Total Protein 6.3 g/dL (6.3-8.2) 05/05/22 14:12 Albumin 3.5 g/dL (3.9-5) L 05/05/22 14:12 Albumin/Globulin Ratio 1.3 % 05/05/22 14:12 TSH 0.400 mlU/mL (0.270-4.200) 05/01/22 15:42 Urine Color Yellow (Yellow) 05/01/22 Unknown Urine Turbidity Clear (Clear) 05/01/22 Unknown Specific [place] (Man) 1.030 (1.003-1.030) 05/01/22 Unknown Ur Protein (Man) 1+ mg/dL (Negative) 05/01/22 Unknown Ur Ketones (Man) Negative (Negative) 05/01/22 Unknown Ur Reducing Substances Not Reportable 05/01/22 Unknown Urine Bilirubin (Man) Negative (Negative) 05/01/22 Unknown Urine WBC (Auto) 1.0 /HPF (0.0-6.0) 05/01/22 Unknown Urine RBC (Auto) 2.0 /HPF (0.0-6.0) 05/01/22 Unknown U Epithel Cells (Auto) 1.0 /HPF (0-13.0) 05/01/22 Unknown Urine RBC (Manual) Negative (Negative) 05/01/22 Unknown Hyaline Casts 1 /LPF 05/01/22 Unknown Urine Mucus Few /HPF 05/01/22 Unknown Salicylates < 0.3 mg/dL (2.8-20.0) L 05/01/22 15:42 Urine Opiates Screen Presumptive negative 05/02/22 23:53 Urine Methadone Screen Presumptive negative 05/02/22 23:53 Acetaminophen 5.0 ug/mL (10.0-30.0) L 05/01/22 15:42 Ur Barbiturates Screen Presumptive negative 05/02/22 23:53 Ur Phencyclidine Scrn Presumptive negative 05/02/22 23:53 Ur Amphetamines Screen Presumptive negative 05/02/22 23:53 U Benzodiazepines Scrn Presumptive negative 05/02/22 23:53 Urine Cocaine Screen Presumptive negative 05/02/22 23:53 U Marijuana (THC) Screen Presumptive negative 05/02/22 23:53 Drugs of Abuse Note Disclamer 05/02/22 23:53 SARS-CoV-2 (PCR) Negative (Negative) 05/03/22 08:16 Loya/IV: Voiding Method Toilet Active Medications - Current Medications Current Medications: Generic Name Dose Route Start Last Admin Trade Name Freq PRN Reason Stop Dose Admin Acetaminophen 650 mg 05/04/22 22:18 Acetaminophen 325 Mg Tab PO Q4H PRN Pain MILD(1-3)/Fever >100.5/CUEVAS Carvedilol 25 mg 05/01/22 22:00 05/07/22 09:26 Carvedilol 25 Mg Tab PO 25 mg BID TOÑO Administration Dextrose 50 ml 05/05/22 18:47 Dextrose 50% In Water (25gm) 50 Ml Syringe IV Q30MIN PRN Hypoglycemia Protocol Donepezil HCl 10 mg 05/01/22 22:00 05/06/22 21:57 Donepezil 10 Mg Tab PO 10 mg QHS TOÑO Administration Haloperidol Lactate 5 mg 05/05/22 09:00 05/05/22 08:30 Haloperidol Lactate 5 Mg/1 Ml Inj IM 5 mg Q6H PRN Administration Agitation Heparin Sodium (Porcine) 5,000 unit 05/04/22 22:45 05/07/22 09:26 Heparin 5,000 Unit/1 Ml Vial SUB-Q 5,000 unit Q12HR TOÑO Administration Sodium Chloride 1,000 mls @ 100 mls/hr 05/04/22 22:30 05/06/22 22:09 Nacl 0.9% 1000 Ml IV 100 mls/hr DIRECT TOÑO Administration Insulin Human Lispro 0 unit 05/05/22 18:47 05/07/22 11:55 Insulin Lispro 100 Unit/Ml SUB-Q Not Given ACHS [facility] Protocol Methimazole 5 mg 05/01/22 22:00 05/07/22 09:26 Methimazole 5 Mg Tab PO 5 mg BID TOÑO Administration Metoclopramide HCl 5 mg 05/04/22 22:38 Metoclopramide 10 Mg/2 Ml Inj IV Q6H PRN Nausea And Vomiting Mirtazapine 7.5 mg 05/06/22 22:00 05/06/22 21:56 Mirtazapine 15 Mg Tab PO 7.5 mg QHS TOÑO Administration Nifedipine 30 mg 05/01/22 20:00 05/07/22 09:26 Nifedipine Xl 30 Mg Tab PO 30 mg QDAY TOÑO Administration Ondansetron HCl 4 mg 05/04/22 22:18 Ondansetron 4 Mg/2 Ml Inj IV Q8H PRN Nausea And Vomiting Oxycodone/Acetaminophen 1 tab 05/04/22 22:23 Oxycodone /Acetaminophen 5-325mg Tab PO Q6H PRN Pain, Moderate (4-6) Pravastatin Sodium 40 mg 05/01/22 22:00 05/06/22 21:56 Pravastatin 40 Mg Tab PO 40 mg QHS TOÑO Administration Risperidone 1 mg 05/06/22 22:00 05/07/22 09:26 Risperidone 1 Mg Tab PO 1 mg BID TOÑO Administration Sodium Chloride 10 ml 05/04/22 23:00 05/07/22 09:27 Sodium Chloride 0.9% 10 Ml Flush Syringe IV 10 ml BID TOÑO Administration Sodium Chloride 10 ml 05/04/22 22:18 Sodium Chloride 0.9% 10 Ml Flush Syringe IV PRN PRN LINE FLUSH Valproic Acid 125 mg 05/03/22 22:00 05/07/22 09:26 Valproic Acid 250 Mg/5 Ml Oral Liqd PO 125 mg BID TOÑO Administration
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
--- NOTE | 2022-05-07 16:18 | Progress Note ---
Assessment and Plan - Patient Problems (1) RAYMON (acute kidney injury) Current Visit: Yes Status: Acute Plan to address problem: possibly prerenal in etiology. Renal function showing improvement with gentle IVF hydration. Avoid nephrotoxins. Will monitor closely. (2) Agitation due to dementia Current Visit: Yes Status: Chronic Plan to address problem: patient was pending placement at a geriatric psychiatry. Management per primary team. (3) HTN (hypertension) Current Visit: Yes Status: Chronic Qualifiers: Hypertension type: primary hypertension Qualified Code(s): I10 - Essential (primary) hypertension Plan to address problem: monitor blood pressures under current regimen. (4) T2DM (type 2 diabetes mellitus) Current Visit: Yes Status: Chronic Qualifiers: Diabetes mellitus terminal operations manager insulin use: unspecified terminal operations manager insulin use status Plan to address problem: diabetes management per primary attending. Subjective Date of service: 05/07/22 Interval history: No acute changes. renal function is stable. Psychiatry note reviewed. Objective - Vital Signs Vital signs: Vital Signs - 12hr 05/07/22 05/07/22 08:00 08:31 Temperature 97.7 F Pulse Rate 66 73 Pulse Rate [ 66 From Monitor] Respiratory 18 18 Rate Blood Pressure 124/72 O2 Sat by Pulse 97 98 Oximetry - General Appearance General appearance: appears stated age EENT: ATNC Neck: no JVD, no thyromegaly Respiratory: Present: Clear to Ascultation Cardiology: regular Gastrointestinal: normal Integumentary: warm and dry Neurologic: confused, disoriented Musculoskeletal: deferred Psychiatric: agitated - Lab 05/07/22 04:55 05/07/22 04:55 Most recent lab results Calcium 8.6 mg/dL (8.4-10.2) 05/07/22 04:55 - Allied health notes Allied health notes reviewed: nursing Medications & Allergies - Medications Allergies/Adverse Reactions: Allergies No Known Allergies Allergy (Unverified 05/01/22 08:15) Home Medications: Home Medications Medication Instructions Recorded Confirmed Last Taken Type [place] 300 mg PO DAILY 05/01/22 05/01/22 Unknown History Methimazole 5 mg PO BID 05/01/22 05/01/22 Unknown History NIFEdipine 90 mg PO DAILY 05/01/22 05/01/22 Unknown History SEROquel 25 mg PO BID 05/01/22 05/01/22 Unknown History Simvastatin 20 mg PO DAILY 05/01/22 05/01/22 Unknown History carvediloL 25 mg PO BID 05/01/22 05/01/22 Unknown History cloNIDine 0.3 mg PO TID 05/01/22 05/01/22 Unknown History donepeziL 10 mg PO QHS 05/01/22 05/01/22 Unknown History Insulin NPH Hum/Reg Insulin Hm 5 SQ QPM 05/05/22 Unknown History [Novolin 70-30 100 Unit/ml Vial] Insulin NPH Hum/Reg Insulin Hm 40 SQ QAM 05/05/22 Unknown History [Novolin 70-30 100 Unit/ml Vial] Active Medications: Generic Name Dose Route Start Last Admin Trade Name Freq PRN Reason Stop Dose Admin Acetaminophen 650 mg 05/04/22 22:18 Acetaminophen 325 Mg Tab PO Q4H PRN Pain MILD(1-3)/Fever >100.5/CUEVAS Carvedilol 25 mg 05/01/22 22:00 05/07/22 09:26 Carvedilol 25 Mg Tab PO 25 mg BID TOÑO Administration Dextrose 50 ml 05/05/22 18:47 Dextrose 50% In Water (25gm) 50 Ml Syringe IV Q30MIN PRN Hypoglycemia Protocol Donepezil HCl 10 mg 05/01/22 22:00 05/06/22 21:57 Donepezil 10 Mg Tab PO 10 mg QHS TOÑO Administration Haloperidol Lactate 5 mg 05/05/22 09:00 05/05/22 08:30 Haloperidol Lactate 5 Mg/1 Ml Inj IM 5 mg Q6H PRN Administration Agitation Heparin Sodium (Porcine) 5,000 unit 05/04/22 22:45 05/07/22 09:26 Heparin 5,000 Unit/1 Ml Vial SUB-Q 5,000 unit Q12HR TOÑO Administration Sodium Chloride 1,000 mls @ 100 mls/hr 05/04/22 22:30 05/06/22 22:09 Nacl 0.9% 1000 Ml IV 100 mls/hr DIRECT TOÑO Administration Insulin Human Lispro 0 unit 05/05/22 18:47 05/07/22 11:55 Insulin Lispro 100 Unit/Ml SUB-Q Not Given ACHS TOÑO Protocol Methimazole 5 mg 05/01/22 22:00 05/07/22 09:26 Methimazole 5 Mg Tab PO 5 mg BID TOÑO Administration Metoclopramide HCl 5 mg 05/04/22 22:38 Metoclopramide 10 Mg/2 Ml Inj IV Q6H PRN Nausea And Vomiting Mirtazapine 7.5 mg 05/06/22 22:00 05/06/22 21:56 Mirtazapine 15 Mg Tab PO 7.5 mg QHS TOÑO Administration Nifedipine 30 mg 05/01/22 20:00 05/07/22 09:26 Nifedipine Xl 30 Mg Tab PO 30 mg QDAY TOÑO Administration Ondansetron HCl 4 mg 05/04/22 22:18 Ondansetron 4 Mg/2 Ml Inj IV Q8H PRN Nausea And Vomiting Oxycodone/Acetaminophen 1 tab 05/04/22 22:23 Oxycodone /Acetaminophen 5-325mg Tab PO Q6H PRN Pain, Moderate (4-6) Pravastatin Sodium 40 mg 05/01/22 22:00 05/06/22 21:56 Pravastatin 40 Mg Tab PO 40 mg QHS TOÑO Administration Risperidone 1 mg 05/06/22 22:00 05/07/22 09:26 Risperidone 1 Mg Tab PO 1 mg BID TOÑO Administration Sodium Chloride 10 ml 05/04/22 23:00 05/07/22 09:27 Sodium Chloride 0.9% 10 Ml Flush Syringe IV 10 ml BID TOÑO Administration Sodium Chloride 10 ml 05/04/22 22:18 Sodium Chloride 0.9% 10 Ml Flush Syringe IV PRN PRN LINE FLUSH Valproic Acid 125 mg 05/03/22 22:00 05/07/22 09:26 Valproic Acid 250 Mg/5 Ml Oral Liqd PO 125 mg BID TOÑO Administration
[2022-05-07] MEDS: MIRTAZAPINE 15 MG TAB PO SCH (21:11)
[2022-05-07] MEDS: DONEPEZIL 10 MG TAB PO SCH (21:11)
[2022-05-07] MEDS: PRAVASTATIN 40 MG TAB PO SCH (21:12)
[2022-05-08] MEDS: SODIUM CHLORIDE 0.9% 1000 ML 1,000 ML IV SCH (03:12)
[2022-05-08 05:28] LABS: Basophils # (Auto) 0.1 K/mm3 (0.0-0.1); Basophils % (Auto) 0.8 % (0.0-1.8); Eosinophils # (Auto) 0.3 K/mm3 (0.0-0.4); Eosinophils % (Auto) 4.3 % (0.0-4.3); Hematocrit 37.6 % (30.3-42.9); Hemoglobin 11.7 gm/dl (10.1-14.3); Lymphocytes # (Auto) 2.3 K/mm3 (1.2-5.4); Lymphocytes % (Auto) 29.8 % (13.4-35.0); Mean Corpuscular HGB Conc 31 % (30-34); Mean Corpuscular Volume 81 fl (79-97); Monocytes # (Auto) 0.8 K/mm3 (0.0-0.8); Monocytes % (Auto) 9.9 % (0.0-7.3); Platelet Count 333 K/mm3 (140-440); Red Blood Count 4.65 M/mm3 (3.65-5.03); Red Cell Distribution Width 15.7 % (13.2-15.2)
[2022-05-08] MEDS: INSULIN LISPRO 100 UNIT/ML SUB-Q SCH ×2 (08:30→11:41)
[2022-05-08] MEDS: carvediloL 25 MG TAB PO SCH (09:44)
[2022-05-08] MEDS: risperiDONE 1 MG TAB PO SCH (09:44)
[2022-05-08] MEDS: VALPROIC ACID 250 MG/5 ML ORAL LIQD PO SCH (09:44)
[2022-05-08] MEDS: methIMAzole 5 MG TAB PO SCH (09:45)
[2022-05-08] MEDS: NIFEdipine XL 30 MG TAB PO SCH (09:45)
[2022-05-08] MEDS: HEPARIN 5,000 UNIT/1 ML VIAL SUB-Q SCH (09:45)
[2022-05-08 10:47] VITALS: BP 162/79
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
[2022-05-08 11:38] LABS: Calcium 8.9 mg/dL (8.4-10.2)
--- NOTE | 2022-05-08 14:28 | Progress Note ---
Assessment and Plan - Patient Problems (1) RAYMON (acute kidney injury) Current Visit: Yes Status: Acute Plan to address problem: possibly prerenal in etiology. Renal function showing improvement with gentle IVF hydration. Avoid nephrotoxins. Will monitor closely. from renal standpoint patient is stable for discharge. (2) Agitation due to dementia Current Visit: Yes Status: Chronic Plan to address problem: patient was pending placement at a geriatric psychiatry. Management per primary team. (3) HTN (hypertension) Current Visit: Yes Status: Chronic Qualifiers: Hypertension type: primary hypertension Qualified Code(s): I10 - Essential (primary) hypertension Plan to address problem: monitor blood pressures under current regimen. (4) T2DM (type 2 diabetes mellitus) Current Visit: Yes Status: Chronic Qualifiers: Diabetes mellitus halfway insulin use: unspecified ferry terminal agent insulin use status Plan to address problem: diabetes management per primary attending. Subjective Date of service: 05/08/22 Interval history: no acute changes this morning. Objective - Vital Signs Vital signs: Vital Signs - 12hr 05/08/22 05/08/22 05/08/22 04:07 07:40 09:45 Temperature 98.2 F 98.4 F Pulse Rate 80 88 79 Respiratory 18 18 Rate Blood Pressure 156/72 162/79 O2 Sat by Pulse 95 97 Oximetry 05/08/22 10:54 Temperature Pulse Rate Respiratory 18 Rate Blood Pressure O2 Sat by Pulse 95 Oximetry - General Appearance General appearance: appears stated age EENT: ATNC Neck: no JVD Respiratory: Present: Clear to Ascultation Cardiology: regular Gastrointestinal: normal Integumentary: no rash Neurologic: confused Musculoskeletal: deferred - Lab 05/08/22 04:28 05/08/22 10:54 Most recent lab results Calcium 8.9 mg/dL (8.4-10.2) 05/08/22 10:54 - Allied health notes Allied health notes reviewed: nursing Medications & Allergies - Medications Allergies/Adverse Reactions: Allergies No Known Allergies Allergy (Unverified 05/01/22 08:15) Home Medications: Home Medications Medication Instructions Recorded Confirmed Last Taken Type Aliskiren 300 mg PO DAILY 05/01/22 05/01/22 Unknown History Methimazole 5 mg PO BID 05/01/22 05/01/22 Unknown History NIFEdipine 90 mg PO DAILY 05/01/22 05/01/22 Unknown History SEROquel 25 mg PO BID 05/01/22 05/01/22 Unknown History Simvastatin 20 mg PO DAILY 05/01/22 05/01/22 Unknown History carvediloL 25 mg PO BID 05/01/22 05/01/22 Unknown History cloNIDine 0.3 mg PO TID 05/01/22 05/01/22 Unknown History donepeziL 10 mg PO QHS 05/01/22 05/01/22 Unknown History Insulin NPH Hum/Reg Insulin Hm 5 SQ QPM 05/05/22 Unknown History [Novolin 70-30 100 Unit/ml Vial] Insulin NPH Hum/Reg Insulin Hm 40 SQ QAM 05/05/22 Unknown History [Novolin 70-30 100 Unit/ml Vial] Lispro Insulin [HumaLOG] 0 unit SUB-Q ACHS units 05/08/22 Unknown Rx Mirtazapine [Remeron 15mg TAB] 7.5 mg PO QHS tablet 05/08/22 Unknown Rx NIFEdipine XL [Procardia Xl] 30 mg PO QDAY tablet 05/08/22 Unknown Rx Pravastatin [Pravachol] 40 mg PO QHS tablet 05/08/22 Unknown Rx VALPROIC ACID Liq [DepaKENE Liq] 125 mg PO BID oral.liqd 05/08/22 Unknown Rx carvediloL [Coreg] 25 mg PO BID tablet 05/08/22 Unknown Rx donepeziL [Aricept] 10 mg PO QHS tablet 05/08/22 Unknown Rx methIMAzole [Tapazole] 5 mg PO BID tablet 05/08/22 Unknown Rx oxyCODONE /ACETAMINOPHEN [Percocet 1 tab PO Q6H PRN tablet 05/08/22 Unknown Rx 5/325 mg] risperiDONE [RisperDAL] 1 mg PO BID tablet 05/08/22 Unknown Rx Active Medications: Generic Name Dose Route Start Last Admin Trade Name Freq PRN Reason Stop Dose Admin Acetaminophen 650 mg 05/04/22 22:18 Acetaminophen 325 Mg Tab PO Q4H PRN Pain MILD(1-3)/Fever >100.5/CUEVAS Carvedilol 25 mg 05/01/22 22:00 05/08/22 09:44 Carvedilol 25 Mg Tab PO 25 mg BID TOÑO Administration Dextrose 50 ml 05/05/22 18:47 Dextrose 50% In Water (25gm) 50 Ml Syringe IV Q30MIN PRN Hypoglycemia Protocol Donepezil HCl 10 mg 05/01/22 22:00 05/07/22 21:11 Donepezil 10 Mg Tab PO 10 mg QHS TOÑO Administration Haloperidol Lactate 5 mg 05/05/22 09:00 05/05/22 08:30 Haloperidol Lactate 5 Mg/1 Ml Inj IM 5 mg Q6H PRN Administration Agitation Heparin Sodium (Porcine) 5,000 unit 05/04/22 22:45 05/08/22 09:45 Heparin 5,000 Unit/1 Ml Vial SUB-Q 5,000 unit Q12HR TOÑO Administration Sodium Chloride 1,000 mls @ 100 mls/hr 05/04/22 22:30 05/08/22 03:12 Nacl 0.9% 1000 Ml IV 100 mls/hr DIRECT TOÑO Administration Insulin Human Lispro 0 unit 05/05/22 18:47 05/08/22 11:41 Insulin Lispro 100 Unit/Ml SUB-Q Not Given ACHS TOÑO Protocol Methimazole 5 mg 05/01/22 22:00 05/08/22 09:45 Methimazole 5 Mg Tab PO 5 mg BID TOÑO Administration Metoclopramide HCl 5 mg 05/04/22 22:38 Metoclopramide 10 Mg/2 Ml Inj IV Q6H PRN Nausea And Vomiting Mirtazapine 7.5 mg 05/06/22 22:00 05/07/22 21:11 Mirtazapine 15 Mg Tab PO 7.5 mg QHS TOÑO Administration Nifedipine 30 mg 05/01/22 20:00 05/08/22 09:45 Nifedipine Xl 30 Mg Tab PO 30 mg QDAY TOÑO Administration Ondansetron HCl 4 mg 05/04/22 22:18 Ondansetron 4 Mg/2 Ml Inj IV Q8H PRN Nausea And Vomiting Oxycodone/Acetaminophen 1 tab 05/04/22 22:23 Oxycodone /Acetaminophen 5-325mg Tab PO Q6H PRN Pain, Moderate (4-6) Pravastatin Sodium 40 mg 05/01/22 22:00 05/07/22 21:12 Pravastatin 40 Mg Tab PO 40 mg QHS TOÑO Administration Risperidone 1 mg 05/06/22 22:00 05/08/22 09:44 Risperidone 1 Mg Tab PO 1 mg BID TOÑO Administration Sodium Chloride 10 ml 05/04/22 23:00 05/08/22 09:45 Sodium Chloride 0.9% 10 Ml Flush Syringe IV 10 ml BID TOÑO Administration Sodium Chloride 10 ml 05/04/22 22:18 Sodium Chloride 0.9% 10 Ml Flush Syringe IV PRN PRN LINE FLUSH Valproic Acid 125 mg 05/03/22 22:00 05/08/22 09:44 Valproic Acid 250 Mg/5 Ml Oral Liqd PO 125 mg BID TOÑO Administration
== END 2022-05-08 15:57 | DRG 683 ==
LOC: ED 01:27 → 4A 05-04 22:18 → 3A 05-05 00:05 → 4A 05-05 06:34
PROVIDERS: ADMIT Internal Medicine; ATTEND Internal Medicine
DX: N17.0 Acute kidney failure with tubular necrosis (principal); F03.91 Unspecified dementia, unspecified severity, with behavioral disturbance; Z20.822 Contact with and (suspected) exposure to COVID-19; E11.9 Type 2 diabetes mellitus without complications; I10 Essential (primary) hypertension; E86.0 Dehydration; E78.2 Mixed hyperlipidemia; K80.20 Calculus of gallbladder without cholecystitis without obstruction
CPT/HCPCS: 36415; 76770; 80048; 80053; 80307; 80320; 81001; 82962; 84443; 85025; G0378; Q9967; G0480; J1630; J1644; J1815; J7030; U0003

== ENCOUNTER 2022-05-07 17:09 | Inpatient (IN) | payer MEDICARE, MEDICAID ==
[2022-05-08 19:53] LABS: Chol/HDL Ratio 2.97 %
[2022-05-08] MEDS: INSULIN LISPRO 100 UNIT/ML SUB-Q SCH ×2 (21:23→21:37)
--- NOTE | 2022-05-09 08:29 | History and Physical Report ---
GP History & Physical - History of Present Illness Date of admission: 05/08/22 Date of Examination: 05/09/22 Reason for Admission: Danger to self, Danger to others, Failure of Outpatient Treatment History of Present Illness: 76 yo F with h/o dementia brought in by EMS with presumed behavioral issues. The patient was initially admitted to the medical unit for acute kidney injury with creatinine of 2.2 and was discharge to the [facility] for continued stabilization. The patient became lethargic and slow to respond; Code MET was initiated; the patient was assessed and followed by the neuro team to rule out CVA. PAST PSYCHIATRIC HISTORY: PAST MEDICAL HISTORY: Hypertension, Hyperlipidemia and Diabetes Family Psychiatric History: None reported or documented SOCIAL HISTORY REVIEW OF SYSTEMS MENTAL STATUS EXAMINATION Diagnosis: HX Dementia Disposition: Patient will be discharged to medical inpatient. Medications and Allergies Allergies Allergy/AdvReac Type Severity Reaction Status Date / Time No Known Allergies Allergy Unverified 05/01/22 08:15 Home Medications Medication Instructions Recorded Confirmed Last Taken Type Aliskiren 300 mg PO DAILY 05/01/22 05/01/22 Unknown History Methimazole 5 mg PO BID 05/01/22 05/01/22 Unknown History NIFEdipine 90 mg PO DAILY 05/01/22 05/01/22 Unknown History SEROquel 25 mg PO BID 05/01/22 05/01/22 Unknown History Simvastatin 20 mg PO DAILY 05/01/22 05/01/22 Unknown History carvediloL 25 mg PO BID 05/01/22 05/01/22 Unknown History cloNIDine 0.3 mg PO TID 05/01/22 05/01/22 Unknown History donepeziL 10 mg PO QHS 05/01/22 05/01/22 Unknown History Insulin NPH Hum/Reg Insulin Hm 5 SQ QPM 05/05/22 Unknown History [Novolin 70-30 100 Unit/ml Vial] Insulin NPH Hum/Reg Insulin Hm 40 SQ QAM 05/05/22 Unknown History [Novolin 70-30 100 Unit/ml Vial] Lispro Insulin [HumaLOG] 0 unit SUB-Q ACHS units 05/08/22 Unknown Rx Mirtazapine [Remeron 15mg TAB] 7.5 mg PO QHS tablet 05/08/22 Unknown Rx NIFEdipine XL [Procardia Xl] 30 mg PO QDAY tablet 05/08/22 Unknown Rx Pravastatin [Pravachol] 40 mg PO QHS tablet 05/08/22 Unknown Rx VALPROIC ACID Liq [DepaKENE Liq] 125 mg PO BID oral.liqd 05/08/22 Unknown Rx carvediloL [Coreg] 25 mg PO BID tablet 05/08/22 Unknown Rx donepeziL [Aricept] 10 mg PO QHS tablet 05/08/22 Unknown Rx methIMAzole [Tapazole] 5 mg PO BID tablet 05/08/22 Unknown Rx oxyCODONE /ACETAMINOPHEN [Percocet 1 tab PO Q6H PRN tablet 05/08/22 Unknown Rx 5/325 mg] risperiDONE [RisperDAL] 1 mg PO BID tablet 05/08/22 Unknown Rx Active Meds: Active Medications Insulin Human Lispro (Insulin Lispro 100 Unit/Ml) 0 unit SUB-Q [facility]; Protocol Last Admin: 05/08/22 21:37 Dose: 2 unit Results - Results Labs/Vitals: Laboratory Last Values POC Glucose 169 mg/dL (70-105) H 05/08/22 19:46 Hemoglobin A1c 7.2 % (4-6) H 05/08/22 18:56 Triglycerides 125 mg/dL (2-149) 05/08/22 18:56 Cholesterol 113 mg/dL (50-199) 05/08/22 18:56 LDL Cholesterol Direct 53 mg/dL (50-130) 05/08/22 18:56 HDL Cholesterol 38 mg/dL (40-59) L 05/08/22 18:56 Cholesterol/HDL Ratio 2.97 % 05/08/22 18:56 TSH 0.466 mlU/mL (0.270-4.200) 05/08/22 18:56 Last Vital Signs Temp 99.1 F 05/08/22 22:00 Pulse 72 05/08/22 22:00 Resp 16 05/08/22 22:00 BP 95/58 05/08/22 22:00 Pulse Ox 97 05/08/22 22:00 Physical Examination - Constitutional Vitals: Vital Signs Temp Pulse Resp BP Pulse Ox 99.1 F 72 16 95/58 97 05/08/22 22:00 05/08/22 22:00 05/08/22 22:00 05/08/22 22:00 05/08/22 22:00 Temperature -Last 24 Hours Temperature 99.1 F Temperature 98.4 F Mental Status Exam - Vital signs Last Vital Signs Temp 99.1 F 05/08/22 22:00 Pulse 72 05/08/22 22:00 Resp 16 05/08/22 22:00 BP 95/58 05/08/22 22:00 Pulse Ox 97 05/08/22 22:00 Physician Certification - Certification Statement Physician Certification Statement: This is an acknowledgement statement that DEVONTE AREVALO is a 76 year old F who requires inpatient psychiatric admission for treatment which could reasonably be expected to improve the patient's condition for Estimated period of time patient will need to remain in the hospital: [ ] Plan for post-hospital care: [ ]
[2022-05-09 10:04] VITALS: BP 147/68
--- NOTE | 2022-05-09 10:38 | Consultation ---
History of Present Illness - Reason for Consult Consult date: 05/09/22 - History of Present Illness [facility] Consult Note # Demographics Consult Type: Acute Stroke Level 2 (4.5-24 hrs) Patient Location: Inpatient First Name: joe Last Name: hayder Date of : 1945 Age: 76 Gender: Female Facility: [facility] Time of Initial Page ( Time): 05/09/2022, 10:06 Time of Return Call ( Time): 05/09/2022, 10:06 # HPI History: 76[facility]. This morning, she was found to be poorly responsive and has right facial drooping. She is not speaking. Last Known Normal: unknown # Scores Time of exam and NIHSS ( Time): 05/09/2022, 10:11 Level of Consciousness 1a: [0] = Alert; keenly responsive LOC Questions 1b: [2] = Answers neither correctly LOC Commands 1c: [0] = Performs both tasks correctly Best Gaze 2: [0] = Normal Visual 3: [0] = No visual loss Facial Palsy 4: [1] = Minor paralysis Motor Arm Left 5a: [0] = No drift Motor Arm Right 5b: [0] = No drift Motor Leg Left 6a: [2] = Some effort against gravity Motor Leg Right 6b: [2] = Some effort against gravity Limb Ataxia 7: [0] = Absent Sensory 8: [0] = Normal Best Language 9: [3] = Mute Dysarthria 10: [2] = Severe dysarthria Extinction and Inattention 11: [0] = No abnormality NIHSS Total: 12 # Exam Vitals: vital signs reviewed # PMH-FH-SH Past Medical History: dementia # Data Head CT: no bleed # Assessment Impression: Ischemic Stroke (Acute) # Plan Thrombolytic/Intervention: Possible IA candidate Thrombolytic Exclusion (< 3 hour window): time of onset unclear Possible IA Candidate: CTA pending Target Blood Pressure: SBP < 220 Labs: lipid panel Imaging: (urgency: STAT): CT Angiogram Head and CT Angiogram Neck AND call back with results if abnormal Imaging: (urgency: routine): MRI Brain without contrast Diagnostic Test: echo without bubble study Therapy/Evaluation: NPO until swallow evaluation PT/OT evaluation speech/swallow consultation Medication: aspirin 81 mg PLUS clopidogrel (Plavix) 75 mg for 21 days, then monotherapy therafter DVT Prophylaxis: SCD chemical DVT prophylaxis Other: LDL < 70 If patient has any neurological deterioration please call me back immediately permissive hypertension telemetry monitoring I have discussed my recommendations with the referring provider Disposition: transfer to IA capable facility if CTA does demonstrate a large ve ssel occlusion # Demographics First Name: joe Last Name: [facility] Facility: [facility] Medications and Allergies Allergies Allergy/AdvReac Type Severity Reaction Status Date / Time No Known Allergies Allergy Unverified 05/01/22 08:15 Home Medications Medication Instructions Recorded Confirmed Last Taken Type Aliskiren 300 mg PO DAILY 05/01/22 05/01/22 Unknown History Methimazole 5 mg PO BID 05/01/22 05/01/22 Unknown History NIFEdipine 90 mg PO DAILY 05/01/22 05/01/22 Unknown History SEROquel 25 mg PO BID 05/01/22 05/01/22 Unknown History Simvastatin 20 mg PO DAILY 05/01/22 05/01/22 Unknown History carvediloL 25 mg PO BID 05/01/22 05/01/22 Unknown History cloNIDine 0.3 mg PO TID 05/01/22 05/01/22 Unknown History donepeziL 10 mg PO QHS 05/01/22 05/01/22 Unknown History Insulin NPH Hum/Reg Insulin Hm 5 SQ QPM 05/05/22 Unknown History [Novolin 70-30 100 Unit/ml Vial] Insulin NPH Hum/Reg Insulin Hm 40 SQ QAM 05/05/22 Unknown History [Novolin 70-30 100 Unit/ml Vial] Lispro Insulin [HumaLOG] 0 unit SUB-Q ACHS units 05/08/22 Unknown Rx Mirtazapine [Remeron 15mg TAB] 7.5 mg PO QHS tablet 05/08/22 Unknown Rx NIFEdipine XL [Procardia Xl] 30 mg PO QDAY tablet 05/08/22 Unknown Rx Pravastatin [Pravachol] 40 mg PO QHS tablet 05/08/22 Unknown Rx VALPROIC ACID Liq [DepaKENE Liq] 125 mg PO BID oral.liqd 05/08/22 Unknown Rx carvediloL [Coreg] 25 mg PO BID tablet 05/08/22 Unknown Rx donepeziL [Aricept] 10 mg PO QHS tablet 05/08/22 Unknown Rx methIMAzole [Tapazole] 5 mg PO BID tablet 05/08/22 Unknown Rx oxyCODONE /ACETAMINOPHEN [Percocet 1 tab PO Q6H PRN tablet 05/08/22 Unknown Rx 5/325 mg] risperiDONE [RisperDAL] 1 mg PO BID tablet 05/08/22 Unknown Rx Active Meds: Active Medications Insulin Human Lispro (Insulin Lispro 100 Unit/Ml) 0 unit SUB-Q ACHS [facility]; Protocol Last Admin: 05/08/22 21:37 Dose: 2 unit Exam - Constitutional Vitals: Temp Pulse Resp BP Pulse Ox 98.0 F 90 20 147/68 94 05/09/22 09:42 05/09/22 09:42 05/09/22 09:42 05/09/22 09:42 05/09/22 09:42 Results - Labs Labs: Abnormal lab results 05/08/22 05/08/22 05/08/22 Range/Units 18:56 18:56 19:46 POC Glucose 169 H (70-105) mg/dL Hemoglobin A1c 7.2 H (4-6) % HDL Cholesterol 38 L (40-59) mg/dL 05/09/22 Range/Units 09:34 POC Glucose 116 H (70-105) mg/dL Hemoglobin A1c (4-6) % HDL Cholesterol (40-59) mg/dL
--- NOTE | 2022-05-09 10:40 | Cat Scan Report ---
CT HEAD WITHOUT CONTRAST INDICATION / CLINICAL INFORMATION: Left sided facial droop, code stroke. TECHNIQUE: Axial imaging performed from the skull apex through the skull base without the use of cont rast. Sagittal and coronal reformatted images. All CT scans at this location are performed using CT dose reduction for ALARA by means of automated exposure control. COMPARISON: None available. FINDINGS: CEREBRAL PARENCHYMA: No significant abnormality. No acute territorial infarct. Mild cortical volume l oss and chronic ischemic changes in the white matter appear appropriate for this person's age. HEMORRHAGE: None. EXTRA-AXIAL SPACES: Normal in size and morphology for the patient's age. VENTRICULAR SYSTEM: Normal in size and morphology for the patient's age. MIDLINE SHIFT OR HERNIATION: None. CEREBELLUM / BRAINSTEM: No significant abnormality. CALVARIUM: No significant abnormality. ORBITS: Normal as visualized. PARANASAL SINUSES / MASTOID AIR CELLS: Normal as visualized. SOFT TISSUES of HEAD: No significant abnormality. ADDITIONAL FINDINGS: None. IMPRESSION: No acute intracranial abnormality. CODE STROKE: Time of Communication (INVESTMENT SPECIALIST/CDT): 0935 hours Licensed Practitioner Receiving Report: Dr. Haile. Signer Name: Mauricio Chu Jr, MD Signed: 05/09/2022 10:36 AM Workstation Name: [id number]
--- NOTE | 2022-05-09 11:03 | Cat Scan Report ---
CTA NECK INDICATION / CLINICAL INFORMATION: 76 years Female; cva. Left facial droop TECHNIQUE: Thin cut axial images obtained through the head during IV bolus contrast administration. S agittal, coronal, and 3 plane MIP reconstructions performed by the technologist. NASCET type criteria used evaluate stenoses. All CT scans at this location are performed using CT dose reduction for ALAR A by means of automated exposure control. 100 cc of Omnipaque 350 was administered intravenously. COMPARISON: None available. FINDINGS: ARCH: Normal aortic arch branching suggested. CAROTID ARTERIES: The visualized common and internal carotid arteries are widely patent. VERTEBRAL ARTERIES: Right dominant vertebral system seen. No significant stenosis appreciated. ADDITIONAL FINDINGS: Remainder of the surrounding soft tissues are grossly normal. IMPRESSION: No significant stenosis appreciated on this CTA of the neck. CTA HEAD WITH CONTRAST HISTORY: Sudden left facial droop, CVA COMPARISON: None. TECHNIQUE: Routine non-contrast CT Head, CTA of the head and post-contrast CT Head are performed. 3-D /MIP reformats postprocessed. All CT scans at this location are performed using CT dose reduction for ALARA by means of automated e xposure control CONTRAST: 100 ml of Omnipaque 350 FINDINGS: CTA Head: Intracranial vertebral arteries: The right vertebral artery is dominant. High-grade stenosis or focal occlusion is suspected in the distal left vertebral artery which is best demonstrated on image 294, series 3. Basilar artery: No significant abnormality. Posterior cerebral arteries: No significant abnormality. Intracranial internal carotid arteries: There is moderate to severe atherosclerotic disease of the bautista praclinoid ICAs. The right side appears more affected with stenosis estimated at greater than 50%. Anterior cerebral arteries: No significant abnormality. Middle cerebral arteries: No significant abnormality. Dural venous sinuses:Not optimally opacified. No significant abnormality. Additional findings: None. IMPRESSION: 1. Focal high-grade stenosis or occlusion in the distal left vertebral artery at the level of the for amen magnum is identified. 2. Moderate to severe atherosclerotic disease in the supraclinoid ICAs, right greater than left. Signer Name: Mauricio Chu Jr, MD Signed: 05/09/2022 10:58 AM Workstation Name: [id number]
--- NOTE | 2022-05-09 11:40 | Consultation ---
History of Present Illness - Reason for Consult Consult date: 05/08/22 Medical Management Requesting physician: KEISHA BYNUM - History of Present Illness 76 YO Female with Vascular Dementia with Behavioral Disturbance, Cerebral Atherosclerosis, HTN, HLD, DM, Metabolic Syndrome, Obesity, Hyperthyroidism, Psychosis admitted to [facility] for psychiatric stabilization. Consult placed by Dr. Bynum for medical management. Patient seen and evaluated in her room. Patient resting comfortably. No reported nursing events. Patient appears to be at baseline level of cognition and function. Past History Past Medical History: diabetes, hyperthyroidism, hypertension, hyperlipidemia, renal failure, other (See HPI) Past Surgical History: No surgical history, Other (Reviewed) Social history: single. denies: smoking, alcohol abuse, prescription drug abuse Family history: diabetes, hypertension Medications and Allergies Allergies Allergy/AdvReac Type Severity Reaction Status Date / Time No Known Allergies Allergy Unverified 05/01/22 08:15 Home Medications Medication Instructions Recorded Confirmed Last Taken Type Aliskiren 300 mg PO DAILY 05/01/22 05/01/22 Unknown History Methimazole 5 mg PO BID 05/01/22 05/01/22 Unknown History NIFEdipine 90 mg PO DAILY 05/01/22 05/01/22 Unknown History SEROquel 25 mg PO BID 05/01/22 05/01/22 Unknown History Simvastatin 20 mg PO DAILY 05/01/22 05/01/22 Unknown History carvediloL 25 mg PO BID 05/01/22 05/01/22 Unknown History cloNIDine 0.3 mg PO TID 05/01/22 05/01/22 Unknown History donepeziL 10 mg PO QHS 05/01/22 05/01/22 Unknown History Insulin NPH Hum/Reg Insulin Hm 5 SQ QPM 05/05/22 Unknown History [Novolin 70-30 100 Unit/ml Vial] Insulin NPH Hum/Reg Insulin Hm 40 SQ QAM 05/05/22 Unknown History [Novolin 70-30 100 Unit/ml Vial] Lispro Insulin [HumaLOG] 0 unit SUB-Q ACHS units 05/08/22 Unknown Rx Mirtazapine [Remeron 15mg TAB] 7.5 mg PO QHS tablet 05/08/22 Unknown Rx NIFEdipine XL [Procardia Xl] 30 mg PO QDAY tablet 05/08/22 Unknown Rx Pravastatin [Pravachol] 40 mg PO QHS tablet 05/08/22 Unknown Rx VALPROIC ACID Liq [DepaKENE Liq] 125 mg PO BID oral.liqd 05/08/22 Unknown Rx carvediloL [Coreg] 25 mg PO BID tablet 05/08/22 Unknown Rx donepeziL [Aricept] 10 mg PO QHS tablet 05/08/22 Unknown Rx methIMAzole [Tapazole] 5 mg PO BID tablet 05/08/22 Unknown Rx oxyCODONE /ACETAMINOPHEN [Percocet 1 tab PO Q6H PRN tablet 05/08/22 Unknown Rx 5/325 mg] risperiDONE [RisperDAL] 1 mg PO BID tablet 05/08/22 Unknown Rx Review of Systems Constitutional: no weight loss, no weight gain, no fever, no chills Ears, nose, mouth and throat: no ear pain, no decreased hearing, no nose pain, no nasal discharge Breasts: no change in shape, no mass Cardiovascular: no chest pain, no orthopnea, no palpitations, no rapid/irregular heart beat, no edema, no syncope Respiratory: no cough, no excessive sputum Gastrointestinal: no abdominal pain, no nausea, no constipation, no change in bowel habits Genitourinary Female: no pelvic pain, no flank pain, no dysuria, no urinary frequency Rectal: no pain, no incontinence, no bleeding Musculoskeletal: no neck stiffness, no neck pain, no shooting arm pain, no arm numbness/tingling, no low back pain, no shooting leg pain Integumentary: no rash, no redness, no sores, no wounds Neurological: no head injury, no paralysis, no weakness, no parathesias, no numbness, no seizures, no syncope Psychiatric: irritability, mood swings Endocrine: no cold intolerance, no polyphagia, no excessive thirst, no polyuria Hematologic/Lymphatic: no easy bruising, no easy bleeding Allergic/Immunologic: no urticaria, no allergic rhinitis, no wheezing Exam - Constitutional Vitals: Temp Pulse Resp BP Pulse Ox 98.0 F 90 20 147/68 94 05/09/22 09:42 05/09/22 09:42 05/09/22 09:42 05/09/22 09:42 05/09/22 09:42 General appearance: Present: obese - EENT Eyes: Present: PERRL ENT: hearing intact, clear oral mucosa - Neck Neck: Present: supple, normal ROM - Respiratory Respiratory effort: normal Respiratory: bilateral: CTA - Cardiovascular Heart Sounds: Present: S1 & S2. Absent: rub, click - Extremities Extremities: pulses symmetrical, No edema Peripheral Pulses: within normal limits - Abdominal General gastrointestinal: Present: soft, non-tender, non-distended, normal bowel sounds Female genitourinary: Present: normal - Integumentary Integumentary: Present: clear, warm, dry - Musculoskeletal Musculoskeletal: gait normal, strength equal bilaterally - Psychiatric Psychiatric: no appropriate mood/affect, no intact judgment & insight, no memory intact - Neurologic Neurologic: CNII-XII intact, moves all extremities Results - Labs Labs: Abnormal lab results 05/08/22 05/08/22 05/08/22 Range/Units 18:56 18:56 19:46 POC Glucose 169 H (70-105) mg/dL Hemoglobin A1c 7.2 H (4-6) % HDL Cholesterol 38 L (40-59) mg/dL 05/09/22 Range/Units 09:34 POC Glucose 116 H (70-105) mg/dL Hemoglobin A1c (4-6) % HDL Cholesterol (40-59) mg/dL Assessment and Plan - Patient Problems (1) Vascular dementia with behavioral disturbance Status: Acute Plan to address problem: Verbal prompting, verbal redirection, benzodiazepine therapy as clinically indicated. (2) Cerebral atherosclerosis Status: Acute Plan to address problem: Risk factor reduction, antiplatelet therapy as clinically indicated. (3) Diabetic nephropathy Status: Acute Plan to address problem: Blood pressure control, continue JAVIER inhibitor therapy as clinically indicated. Outpatient follow-up with nephrology as instructed. (4) Hyperthyroidism Status: Acute Plan to address problem: Continue current therapy, supportive care. (5) Metabolic syndrome Status: Acute Plan to address problem: Balanced diet, increase physical activity discharge, risk factor reduction, low- cholesterol diet, weight reduction. (6) Diabetes Status: Acute Plan to address problem: Consistent carbohydrate diet, Accu-Chek, insulin protocol, hypoglycemia protocol. (7) HTN (hypertension) Status: Chronic Qualifiers: Hypertension type: primary hypertension Qualified Code(s): I10 - Essential (primary) hypertension Plan to address problem: Monitor blood pressure every shift, continue medical management (8) Hyperlipidemia Status: Chronic Qualifiers: Hyperlipidemia type: mixed hyperlipidemia Qualified Code(s): E78.2 - Mixed hyperlipidemia Plan to address problem: Statin therapy, low-cholesterol diet, supportive care. (9) Advance care planning Status: Acute Plan to address problem: Disease education conducted, care plan discussed, diagnoses discussed, prognosis discussed, patient is full code, +30 minutes. (10) Preventative health care Status: Acute Plan to address problem: Patient counseled regarding home safety precautions, medication compliance, outpatient follow-up with primary care physician for all age and risk factor appropriate screening test.
== END 2022-05-09 10:05 | disposition short-term general hospital (02) | DRG 884 ==
LOC: 3A 17:09 → UNDOADMIN 17:09 → 5A 05-08 17:15
PROVIDERS: ADMIT Psychiatry & Neurology Psychiatry; ATTEND Psychiatry & Neurology Psychiatry
DX: F01.51 Vascular dementia, unspecified severity, with behavioral disturbance (principal); I63.9 Cerebral infarction, unspecified; I67.2 Cerebral atherosclerosis; I10 Essential (primary) hypertension; E88.81 Metabolic syndrome and other insulin resistance; E66.9 Obesity, unspecified; E11.21 Type 2 diabetes mellitus with diabetic nephropathy; E78.2 Mixed hyperlipidemia; E05.90 Thyrotoxicosis, unspecified without thyrotoxic crisis or storm; Z68.36 Body mass index [BMI] 36.0-36.9, adult; Z79.4 Long term (current) use of insulin; Z83.3 Family history of diabetes mellitus; Z82.49 Family history of ischemic heart disease and other diseases of the circulatory system
CPT/HCPCS: 36415; 70450; 70496; 70498; 80061; 82962; 83036; 84443; G0378; Q9967; J1815

== ENCOUNTER 2022-05-09 11:04 | Inpatient (IN) | payer MEDICAID, MEDICARE ==
--- NOTE | 2022-05-09 10:57 | History and Physical Report ---
History of Present Illness Chief complaint: She just got weak all of a sudden History of present illness: 76 YO Female with Vascular Dementia with Behavioral Disturbance, Cerebral Atherosclerosis, HTN, HLD, DM, Metabolic Syndrome, Obesity Hypoventilation Syndrome, Hyperthyroidism, Psychosis presents ED for evaluation. Patient was previously admitted to [facility] for psychiatric stabilization. Patient was found by [facility] staff to have decreased responsiveness. Patient discharged from [facility] and admitted to ED for evaluation. The patient status was discussed with her daughter who is at bedside during exam and interview. As per daughter the patient has experienced increased weakness and confusion while at home. Daughter serves as primary caregiver. Daughter reports 5/6 assistance with activities of daily living with increased bedbound status. Patient has palliative performance score of 40%. The patient was found to have a focal neurologic deficit. A code stroke was called and the patient transported to ED for further care and evaluation. The patient was seen and evaluated in the emergency department. All lab and imaging studies reviewed. Patient found to have clinical symptoms consistent with CVA. Patient admitted to medical floor due to increased risk of worsening symptoms and for medical stabilization. Patient initiated on CVA protocol. No reports of fever, chills, chest pain, palpitation, productive cough, skin rash, trauma, recent contact, known exposure to COVID-19. Prior mission on 05/04/2022 reviewed. All medication listed at time of admission has been reconciled. Advanced care planning conducted in ED. Past History Past Medical History: diabetes, hypertension, hyperlipidemia Past Surgical History: No surgical history, Other (Reviewed) Social history: single, lives with family. denies: smoking, alcohol abuse, prescription drug abuse Family history: diabetes, hypertension Medications and Allergies Allergies Allergy/AdvReac Type Severity Reaction Status Date / Time No Known Allergies Allergy Unverified 05/01/22 08:15 Home Medications Medication Instructions Recorded Confirmed Last Taken Type Aliskiren 300 mg PO DAILY 05/01/22 05/01/22 Unknown History Methimazole 5 mg PO BID 05/01/22 05/01/22 Unknown History NIFEdipine 90 mg PO DAILY 05/01/22 05/01/22 Unknown History SEROquel 25 mg PO BID 05/01/22 05/01/22 Unknown History Simvastatin 20 mg PO DAILY 05/01/22 05/01/22 Unknown History carvediloL 25 mg PO BID 05/01/22 05/01/22 Unknown History cloNIDine 0.3 mg PO TID 05/01/22 05/01/22 Unknown History donepeziL 10 mg PO QHS 05/01/22 05/01/22 Unknown History Insulin NPH Hum/Reg Insulin Hm 5 SQ QPM 05/05/22 Unknown History [Novolin 70-30 100 Unit/ml Vial] Insulin NPH Hum/Reg Insulin Hm 40 SQ QAM 05/05/22 Unknown History [Novolin 70-30 100 Unit/ml Vial] Lispro Insulin [HumaLOG] 0 unit SUB-Q ACHS units 05/08/22 Unknown Rx Mirtazapine [Remeron 15mg TAB] 7.5 mg PO QHS tablet 05/08/22 Unknown Rx NIFEdipine XL [Procardia Xl] 30 mg PO QDAY tablet 05/08/22 Unknown Rx Pravastatin [Pravachol] 40 mg PO QHS tablet 05/08/22 Unknown Rx VALPROIC ACID Liq [DepaKENE Liq] 125 mg PO BID oral.liqd 05/08/22 Unknown Rx carvediloL [Coreg] 25 mg PO BID tablet 05/08/22 Unknown Rx donepeziL [Aricept] 10 mg PO QHS tablet 05/08/22 Unknown Rx methIMAzole [Tapazole] 5 mg PO BID tablet 05/08/22 Unknown Rx oxyCODONE /ACETAMINOPHEN [Percocet 1 tab PO Q6H PRN tablet 05/08/22 Unknown Rx 5/325 mg] risperiDONE [RisperDAL] 1 mg PO BID tablet 05/08/22 Unknown Rx Review of Systems ROS unobtainable: due to mental status Exam - Constitutional General appearance: Present: mild distress - EENT Eyes: Present: PERRL ENT: hearing decreased - Neck Neck: Present: supple, normal ROM - Respiratory Respiratory effort: normal Respiratory: bilateral: CTA - Cardiovascular Heart Sounds: Present: S1 & S2. Absent: rub, click - Extremities Extremities: pulses symmetrical, No edema Peripheral Pulses: within normal limits - Abdominal General gastrointestinal: Present: soft, non-tender, non-distended, normal bowel sounds Female genitourinary: Present: normal - Integumentary Integumentary: Present: clear, warm, dry - Musculoskeletal Musculoskeletal: gait normal, strength equal bilaterally - Psychiatric Psychiatric: appropriate mood/affect, intact judgment & insight - Neurologic Neurologic: CNII-XII intact, moves all extremities Results - Labs CBC & Chem 7: 05/09/22 12:38 05/09/22 12:38 Assessment and Plan - Patient Problems (1) CVA (cerebral vascular accident) Current Visit: Yes Status: Acute Plan to address problem: CVA protocol: CTA, neuro check, seizure precaution, aspiration precautions, fall precautions, physical therapy consulted, Occupational Therapy consulted, speech therapy consulted, antiplatelet therapy, lipid panel, statin therapy, echocardiogram, carotid Doppler. (2) Diabetes Current Visit: No Status: Acute Plan to address problem: Consistent carbohydrate diet, Accu-Chek, insulin protocol, hypoglycemia protocol. (3) Hyperthyroidism Current Visit: No Status: Acute (4) HTN (hypertension) Current Visit: No Status: Chronic Qualifiers: Hypertension type: primary hypertension Qualified Code(s): I10 - Essential (primary) hypertension Plan to address problem: Monitor blood pressure every shift, continue medical management. Permissive hypertension overnight. (5) Hyperlipidemia Current Visit: No Status: Chronic Qualifiers: Hyperlipidemia type: mixed hyperlipidemia Qualified Code(s): E78.2 - Mixed hyperlipidemia Plan to address problem: Statin therapy, lipid panel, low-cholesterol diet, (6) Metabolic syndrome Current Visit: Yes Status: Acute Plan to address problem: Balanced diet, increase physical activity discharge, weight reduction, risk factor reduction. Blood glucose control. (7) DVT prophylaxis Current Visit: No Status: Acute Plan to address problem: SCD to bilateral lower extremities while in bed (8) Advance care planning Current Visit: No Status: Acute Plan to address problem: Disease education conducted, care plan discussed, diagnoses discussed, prognosis discussed, discussed CODE STATUS with patient daughter Nicole [phone]. Patient daughter states that she will make determination regarding CODE STATUS in the future. Patient daughter counseled regarding patient prognosis. Patient daughter reports that she is unable to care for patient at home and re [facility] placement with hospice care. [facility] consulted as per family request. +30 minutes. (9) Preventative health care Current Visit: No Status: Acute Plan to address problem: Patient daughter counseled regarding outpatient follow-up with primary care physician for all age and risk factor appropriate screening test. +30 minutes.
--- NOTE | 2022-05-09 12:21 | XRay Report ---
XR chest 1V ap INDICATION / CLINICAL INFORMATION: Dyspnea. COMPARISON: None available. FINDINGS: SUPPORT DEVICES: None. HEART /PULMONARY VASCULATURE: Cardiac enlargement with mild pulmonary vasculature congestion. LUNGS / PLEURA: No focal airspace consolidation. No sizable pleural effusion. No pneumothorax. ADDITIONAL FINDINGS: No significant additional findings. IMPRESSION: Mild pulmonary vasculature congestion. No evidence of focal infiltrate. Signer Name: Rakesh Peter MD Signed: 05/09/2022 12:16 PM Workstation Name: [email or web address]
[2022-05-09 12:52] LABS: Basophils # (Auto) 0.1 K/mm3 (0.0-0.1); Basophils % (Auto) 0.7 % (0.0-1.8); Eosinophils # (Auto) 0.2 K/mm3 (0.0-0.4); Eosinophils % (Auto) 2.6 % (0.0-4.3); Hematocrit 38.9 % (30.3-42.9); Hemoglobin 12.5 gm/dl (10.1-14.3); Lymphocytes # (Auto) 2.2 K/mm3 (1.2-5.4); Lymphocytes % (Auto) 25.2 % (13.4-35.0); Mean Corpuscular HGB Conc 32 % (30-34); Mean Corpuscular Volume 80 fl (79-97); Monocytes # (Auto) 0.9 K/mm3 (0.0-0.8); Monocytes % (Auto) 10.4 % (0.0-7.3); Platelet Count 310 K/mm3 (140-440); Red Blood Count 4.87 M/mm3 (3.65-5.03); Red Cell Distribution Width 15.4 % (13.2-15.2)
[2022-05-09 13:02] LABS: INR 0.93 (0.87-1.13)
[2022-05-09 13:03] LABS: Partial Thromboplastin Time 26.6 Sec. (24.2-36.6); Thrombin Time 17.5 Sec. (15.1-19.6)
[2022-05-09 13:17] LABS: Creatine Kinase MB 2.2 ng/mL (0.0-4.0)
[2022-05-09 13:18] LABS: Albumin 3.5 g/dL (3.9-5)
--- NOTE | 2022-05-09 13:44 | Electrocardiograph Report ---
[facility] Test Date: 2022-05-09 Test Time: 11:22:56 Pat Name: DEVONTE AREVALO Department: Room: Gender: F Branch [employer]: : 1945 Requested By: TYE HUTCHINS Order Number: [id number] Reading MD: Melissa Ferguson Measurements Intervals [place] Rate: 85 P: 19 IA: 170 QRS: 9 QRSD: 84 T: 39 QT: 372 QTc: 442 Interpretive Statements Sinus rhythm No previous ECG available for comparison Electronically Signed On 05-09-2022 13:44:25 EDT by Melissa Ferguson
[2022-05-09] MEDS ORDERED: METOPROLOL TARTRATE 5 MG/5 ML INJ IV ONE ×2 (14:13→16:10)
--- NOTE | 2022-05-09 14:15 | Emergency Department Report ---
ED General Adult HPI - General Chief complaint: Neuro Symptoms/Deficit PUI?: No Time Seen by Provider: 05/09/22 11:21 Source: RN/MD Mode of arrival: Sydnie Limitations: Altered Mental Status - History of Present Illness Initial comments: was inpatient [facility], pt altered this morning, unknown last known well time per staff. -: Gradual, hour(s) Radiation: non-radiation Worsens with: none Associated Symptoms: denies: denies other symptoms, confusion, chest pain - Related Data Home Medications Medication Instructions Recorded Confirmed Last Taken Aliskiren 300 mg PO DAILY 05/01/22 05/01/22 Unknown Methimazole 5 mg PO BID 05/01/22 05/01/22 Unknown NIFEdipine 90 mg PO DAILY 05/01/22 05/01/22 Unknown SEROquel 25 mg PO BID 05/01/22 05/01/22 Unknown Simvastatin 20 mg PO DAILY 05/01/22 05/01/22 Unknown carvediloL 25 mg PO BID 05/01/22 05/01/22 Unknown cloNIDine 0.3 mg PO TID 05/01/22 05/01/22 Unknown donepeziL 10 mg PO QHS 05/01/22 05/01/22 Unknown Insulin NPH Hum/Reg Insulin Hm 5 SQ QPM 05/05/22 Unknown [Novolin 70-30 100 Unit/ml Vial] Insulin NPH Hum/Reg Insulin Hm 40 SQ QAM 05/05/22 Unknown [Novolin 70-30 100 Unit/ml Vial] Previous Rx's Medication Instructions Recorded Last Taken Type Lispro Insulin [HumaLOG] 0 unit SUB-Q ACHS units 05/08/22 Unknown Rx Mirtazapine [Remeron 15mg TAB] 7.5 mg PO QHS tablet 05/08/22 Unknown Rx NIFEdipine XL [Procardia Xl] 30 mg PO QDAY tablet 05/08/22 Unknown Rx Pravastatin [Pravachol] 40 mg PO QHS tablet 05/08/22 Unknown Rx VALPROIC ACID Liq [DepaKENE Liq] 125 mg PO BID oral.liqd 05/08/22 Unknown Rx carvediloL [Coreg] 25 mg PO BID tablet 05/08/22 Unknown Rx donepeziL [Aricept] 10 mg PO QHS tablet 05/08/22 Unknown Rx methIMAzole [Tapazole] 5 mg PO BID tablet 05/08/22 Unknown Rx oxyCODONE /ACETAMINOPHEN [Percocet 1 tab PO Q6H PRN tablet 05/08/22 Unknown Rx 5/325 mg] risperiDONE [RisperDAL] 1 mg PO BID tablet 05/08/22 Unknown Rx Allergies Allergy/AdvReac Type Severity Reaction Status Date / Time No Known Allergies Allergy Unverified 05/01/22 08:15 ED Review of Systems ROS: Stated complaint: Other details as noted in HPI Constitutional: denies: chills, fever Eyes: denies: eye pain, eye discharge, vision change ENT: denies: ear pain, throat pain Respiratory: denies: cough, shortness of breath, wheezing Cardiovascular: denies: chest pain, palpitations Endocrine: no symptoms reported Gastrointestinal: denies: abdominal pain, nausea, diarrhea Genitourinary: denies: urgency, dysuria, discharge Musculoskeletal: denies: back pain, joint swelling, arthralgia Skin: denies: rash, lesions Neurological: denies: headache, weakness, paresthesias Psychiatric: denies: anxiety, depression Hematological/Lymphatic: denies: easy bleeding, easy bruising ED Past Medical Hx - Past Medical History Previous Medical History?: Yes Hx Hypertension: Yes Hx Diabetes: Yes (IDDM) Hx Renal Disease: Yes (RAYMON) Hx Arthritis: No Hx Seizures: No Hx Dementia: Yes Additional medical history: hyperlipidemia - Surgical History Hx Cholecystectomy: No Hx Appendectomy: No - Social History Smoking Status: Unknown if ever smoked - Medications Home Medications: Home Medications Medication Instructions Recorded Confirmed Last Taken Type Aliskiren 300 mg PO DAILY 05/01/22 05/01/22 Unknown History Methimazole 5 mg PO BID 05/01/22 05/01/22 Unknown History NIFEdipine 90 mg PO DAILY 05/01/22 05/01/22 Unknown History SEROquel 25 mg PO BID 05/01/22 05/01/22 Unknown History Simvastatin 20 mg PO DAILY 05/01/22 05/01/22 Unknown History carvediloL 25 mg PO BID 05/01/22 05/01/22 Unknown History cloNIDine 0.3 mg PO TID 05/01/22 05/01/22 Unknown History donepeziL 10 mg PO QHS 05/01/22 05/01/22 Unknown History Insulin NPH Hum/Reg Insulin Hm 5 SQ QPM 05/05/22 Unknown History [Novolin 70-30 100 Unit/ml Vial] Insulin NPH Hum/Reg Insulin Hm 40 SQ QAM 05/05/22 Unknown History [Novolin 70-30 100 Unit/ml Vial] Lispro Insulin [HumaLOG] 0 unit SUB-Q ACHS units 05/08/22 Unknown Rx Mirtazapine [Remeron 15mg TAB] 7.5 mg PO QHS tablet 05/08/22 Unknown Rx NIFEdipine XL [Procardia Xl] 30 mg PO QDAY tablet 05/08/22 Unknown Rx Pravastatin [Pravachol] 40 mg PO QHS tablet 05/08/22 Unknown Rx VALPROIC ACID Liq [DepaKENE Liq] 125 mg PO BID oral.liqd 05/08/22 Unknown Rx carvediloL [Coreg] 25 mg PO BID tablet 05/08/22 Unknown Rx donepeziL [Aricept] 10 mg PO QHS tablet 05/08/22 Unknown Rx methIMAzole [Tapazole] 5 mg PO BID tablet 05/08/22 Unknown Rx oxyCODONE /ACETAMINOPHEN [Percocet 1 tab PO Q6H PRN tablet 05/08/22 Unknown Rx 5/325 mg] risperiDONE [RisperDAL] 1 mg PO BID tablet 05/08/22 Unknown Rx ED Physical Exam - General Limitations: Altered Mental Status General appearance: alert, in no apparent distress - Head Head exam: Present: atraumatic, normocephalic - Eye Eye exam: Present: normal appearance - ENT ENT exam: Present: mucous membranes moist - Neck Neck exam: Present: normal inspection - Respiratory Respiratory exam: Present: normal lung sounds bilaterally. Absent: respiratory distress - Cardiovascular Cardiovascular Exam: Present: regular rate, normal rhythm. Absent: systolic murmur, diastolic murmur, rubs, gallop - GI/Abdominal GI/Abdominal exam: Present: soft, normal bowel sounds - Extremities Exam Extremities exam: Present: normal inspection - Back Exam Back exam: Present: normal inspection - Neurological Exam Neurological exam: Present: alert, oriented X3 - Psychiatric Psychiatric exam: Present: normal affect, normal mood - Skin Skin exam: Present: warm, dry, intact, normal color. Absent: rash ED Course Vital Signs 05/09/22 05/09/22 05/09/22 11:19 11:48 11:50 Pulse Rate 82 73 Respiratory 16 18 17 Rate Blood Pressure 152/69 152/69 O2 Sat by Pulse 96 92 93 Oximetry 05/09/22 05/09/22 05/09/22 11:52 11:54 11:56 Pulse Rate 84 80 91 H Respiratory 21 19 20 Rate Blood Pressure 152/69 152/69 152/69 O2 Sat by Pulse 95 93 93 Oximetry 05/09/22 05/09/22 05/09/22 11:57 11:58 12:00 Pulse Rate 80 73 80 Respiratory 20 19 19 Rate Blood Pressure 152/77 152/69 152/69 O2 Sat by Pulse 96 94 93 Oximetry 05/09/22 05/09/22 05/09/22 12:01 12:02 12:04 Pulse Rate 81 86 99 H Respiratory 19 22 18 Rate Blood Pressure 152/69 152/69 152/69 O2 Sat by Pulse 94 95 97 Oximetry 05/09/22 05/09/22 05/09/22 12:06 12:08 12:10 Pulse Rate 92 H 87 82 Respiratory 22 19 19 Rate Blood Pressure 152/69 152/69 152/69 O2 Sat by Pulse 95 95 95 Oximetry 05/09/22 05/09/22 05/09/22 12:12 12:14 12:16 Pulse Rate 73 80 83 Respiratory 17 17 17 Rate Blood Pressure 152/69 152/69 152/69 O2 Sat by Pulse 94 93 93 Oximetry 05/09/22 05/09/22 05/09/22 12:18 12:20 12:22 Pulse Rate 77 85 59 L Respiratory 17 17 17 Rate Blood Pressure 152/69 152/69 152/69 O2 Sat by Pulse 94 94 94 Oximetry 05/09/22 05/09/22 05/09/22 12:24 12:26 12:28 Pulse Rate 76 86 81 Respiratory 16 19 18 Rate Blood Pressure 152/69 152/69 152/69 O2 Sat by Pulse 95 94 95 Oximetry 05/09/22 05/09/22 05/09/22 12:30 12:32 12:34 Pulse Rate 73 82 72 Respiratory 17 17 19 Rate Blood Pressure 152/69 152/69 152/69 O2 Sat by Pulse 95 94 95 Oximetry 05/09/22 05/09/22 05/09/22 12:36 12:38 12:40 Pulse Rate 89 84 90 Respiratory 21 20 20 Rate Blood Pressure 152/69 152/69 152/69 O2 Sat by Pulse 95 97 96 Oximetry 05/09/22 05/09/22 05/09/22 12:42 12:44 12:46 Pulse Rate 89 85 87 Respiratory 21 20 20 Rate Blood Pressure 152/69 152/69 152/69 O2 Sat by Pulse 96 96 95 Oximetry 05/09/22 05/09/22 05/09/22 12:48 12:50 12:52 Pulse Rate 85 82 86 Respiratory 20 19 20 Rate Blood Pressure 152/69 152/69 152/69 O2 Sat by Pulse 97 96 97 Oximetry 05/09/22 05/09/22 05/09/22 12:54 12:56 12:58 Pulse Rate 83 88 84 Respiratory 19 20 17 Rate Blood Pressure 152/69 152/69 152/69 O2 Sat by Pulse 95 95 95 Oximetry 05/09/22 05/09/22 05/09/22 13:00 13:02 13:04 Pulse Rate 74 72 84 Respiratory 18 18 20 Rate Blood Pressure 152/69 152/69 152/69 O2 Sat by Pulse 95 95 95 Oximetry 05/09/22 05/09/22 05/09/22 13:06 13:08 13:10 Pulse Rate 78 77 78 Respiratory 17 18 17 Rate Blood Pressure 152/69 152/69 152/69 O2 Sat by Pulse 95 95 95 Oximetry 05/09/22 05/09/22 05/09/22 13:12 13:14 13:16 Pulse Rate 76 81 75 Respiratory 17 18 17 Rate Blood Pressure 152/69 152/69 152/69 O2 Sat by Pulse 95 95 95 Oximetry 05/09/22 05/09/22 05/09/22 13:18 13:20 13:22 Pulse Rate 62 85 86 Respiratory 17 19 19 Rate Blood Pressure 152/69 152/69 152/69 O2 Sat by Pulse 95 95 96 Oximetry ED Medical Decision Making - Lab Data Result diagrams: 05/09/22 12:38 05/09/22 12:38 Critical care attestation.: If time is entered above; I have spent that time in minutes in the direct care of this critically ill patient, excluding procedure time. ED Disposition Clinical Impression: CVA (cerebral vascular accident), Hypertensive urgency Disposition: 09 ADMITTED INPATIENT Is pt being admited?: Yes Does the pt Need Aspirin: No Condition: Fair Referrals: PRIMARY CARE, [Primary Care Provider] - 3-5 Days
[2022-05-09] MEDS ORDERED: MAGNESIUM HYDROXIDE (MOM) ORAL LIQD UDC PO PRN (17:47)
[2022-05-09] MEDS ORDERED: HYDROmorphone 0.5 MG/0.5 ML INJ IV PRN (17:47)
[2022-05-09] MEDS ORDERED: oxyCODONE /ACETAMINOPHEN 5-325MG TAB PO PRN (17:47)
[2022-05-09] MEDS ORDERED: ONDANSETRON 4 MG/2 ML INJ IV PRN (17:47)
[2022-05-09] MEDS ORDERED: METOCLOPRAMIDE 10 MG TAB PO PRN (17:47)
[2022-05-09] MEDS ORDERED: PROMETHAZINE 25 MG RECT SUPP PR PRN (17:47)
[2022-05-09] MEDS ORDERED: hydrALAZINE 20 MG/1 ML INJ IV PRN (18:00)
[2022-05-09 18:39] LABS: Amphetamine Screen,Urine Negative; Benzodiazepines Screen,Urine Negative; Cannabinoid Screen,Urine Negative; Cocaine Screen,Urine Negative; Methadone Screen,Urine Negative; Opiate Screen,Urine Negative
[2022-05-09 19:21] LABS: Color,Urine Straw (Yellow)
[2022-05-09 19:33] LABS: WBC,Urine < 1.0 /HPF (0.0-6.0)
[2022-05-09] MEDS ORDERED: CLONIDINE 0.3 MG PO SCH (20:00)
[2022-05-09] MEDS ORDERED: METHIMAZOLE 5 MG PO SCH (22:00)
[2022-05-09] MEDS ORDERED: cloNIDine 0.1 MG TAB PO SCH (22:00)
[2022-05-09] MEDS ORDERED: NON-FORMULARY EACH (Carvedilol 25 MG) PO SCH (22:00)
[2022-05-09] MEDS ORDERED: DONEPEZIL 10 MG PO SCH (22:00)
[2022-05-09] MEDS: carvediloL 25 MG TAB PO SCH (22:45)
[2022-05-09] MEDS: risperiDONE 1 MG TAB PO SCH (22:45)
[2022-05-09] MEDS: methIMAzole 5 MG TAB PO SCH (22:45)
[2022-05-09] MEDS: MIRTAZAPINE 15 MG TAB PO SCH (22:45)
[2022-05-09] MEDS: PRAVASTATIN 40 MG TAB PO SCH (22:46)
[2022-05-09] MEDS: cloNIDine 0.1 MG TAB PO SCH (22:47)
[2022-05-10] MEDS: DONEPEZIL 10 MG TAB PO SCH ×2 (01:52→22:39)
[2022-05-10] MEDS: VALPROIC ACID 250 MG/5 ML ORAL LIQD PO SCH ×3 (01:53→22:42)
[2022-05-10] MEDS ORDERED: ALISKIREN HEMIFUMARATE 150 MG TAB PO SCH (10:00)
[2022-05-10] MEDS ORDERED: ALISKIREN 300 MG PO SCH (10:00)
[2022-05-10] MEDS ORDERED: NON-FORMULARY EACH (Nifedipine 90 MG) PO SCH (10:00)
[2022-05-10] MEDS: ASPIRIN 325 MG TAB PO SCH (10:01)
[2022-05-10] MEDS: methIMAzole 5 MG TAB PO SCH ×2 (10:01→22:38)
[2022-05-10] MEDS: cloNIDine 0.1 MG TAB PO SCH ×3 (10:01→22:21)
[2022-05-10] MEDS: carvediloL 25 MG TAB PO SCH ×2 (10:02→22:26)
[2022-05-10] MEDS: NIFEdipine XL 90 MG TAB PO SCH (10:02)
[2022-05-10] MEDS: risperiDONE 1 MG TAB PO SCH ×2 (10:03→22:38)
[2022-05-10] MEDS: NIFEdipine XL 30 MG TAB PO SCH (10:03)
--- NOTE | 2022-05-10 11:39 | Progress Note ---
Assessment and Plan 76 YO Female with Vascular Dementia with Behavioral Disturbance, Cerebral Atherosclerosis, HTN, HLD, DM, Metabolic Syndrome, Obesity Hypoventilation Syndrome, Hyperthyroidism, Psychosis presents ED for evaluation. Patient was previously [facility] for psychiatric stabilization. Patient was found by [facility] staff to have decreased responsiveness. Patient discharged from [facility] and send back to ED for evaluation. Daughter reports 5/6 assistance with activities of daily living with increased bedbound status. Patient has palliative performance score of 40%. Patient admitted to hospitalist service for possible stroke work-up. 05/10/22: Patient apparently does not have any neurological deficit today. Work- up still pending. Discussed with daughter at the bedside and she is interested in hospice service. Patient dementia seems to be advancing and now she has a very poor appetite and completely bedbound requiring full assistance. Waiting on case management to set up hospice service. Assessment and plan -- CVA (cerebral vascular accident) versus syncope Admitted with CVA protocol: CTA, neuro check, seizure precaution, aspiration precautions, fall precautions, physical therapy consulted, Occupational Therapy consulted, speech therapy consulted, antiplatelet therapy, lipid panel, statin therapy, echocardiogram, carotid Doppler. Continue to follow with frequent neuro exam Cardiac consistent carb diet, for pending work-up --Advanced dementia, continue supportive care Family requesting SNF placement with hospice service -- Diabetes Consistent carbohydrate diet, Accu-Chek, insulin protocol, hypoglycemia protocol. -- Hyperthyroidism, continue home meds -- HTN (hypertension) Monitor blood pressure every shift, continue medical management. Permissive hy pertension overnight. -- Hyperlipidemia Statin therapy, lipid panel, low-cholesterol diet, --DVT prophylaxis, Lovenox -- Advance care planning Disease education conducted, care plan discussed, diagnoses discussed, prognosis discussed, discussed CODE STATUS with patient daughter Nicole [phone]. Patient daughter states that she will make determination regarding CODE STATUS in the future. Patient daughter counseled regarding patient prognosis. Patient daughter reports that she is unable to care for patient at home and request shelter facility [facility] +30 minutes. -- Pending stroke work-up, PT OT eval. continue to provide supportive care. Pending hospice Subjective Date of service: 05/10/22 Interval history: Patient seen and examined. Medical records and medication list reviewed. No acute event overnight noted by the RN. Patient complains of generalized body ache. Patient complains of poor appetite Discussed plan of care at bedside with patient's daughter. Patient daughter requested for hospice Objective - Exam Narrative Exam: GENERAL: well-developed and well-nourished elderly white female lying on bed appeared to be in no discomfort. HEENT: Normocephalic. Atraumatic. No conjunctival congestion or icterus. Patient has moist mucous membranes. NECK: Supple. Trachea midline. CHEST/LUNGS: Clear to auscultated bilaterally, breathing nonlabored. No wheezes crackles or rhonchi. HEART/CARDIOVASCULAR: Regular in rate and rhythm. S1 and S2 positive. ABDOMEN: Abdomen is soft, nontender. Patient has normal bowel sounds. SKIN: There is no rash. Warm and dry. NEURO: No focal motor deficit. Follows command. Generalized weakness MUSCULOSKELETAL: No joint effusion or tenderness. EXTRIMITY: No edema, no cyanosis or clubbing. PSYCH: Cooperative but anxious. - Constitutional Vitals: Vital Signs - 12hr 05/10/22 05/10/22 05/10/22 05:42 08:38 10:00 Temperature 98.2 F Pulse Rate 77 Respiratory 18 16 Rate Blood Pressure 141/77 O2 Sat by Pulse 95 95 97 Oximetry 05/10/22 05/10/22 10:01 10:02 Temperature Pulse Rate 82 82 Respiratory Rate Blood Pressure 155/76 155/76 O2 Sat by Pulse Oximetry - Labs CBC & Chem 7: 05/09/22 12:38 05/09/22 12:38 Labs: Abnormal lab results 05/09/22 05/09/22 05/09/22 Range/Units 12:38 12:38 22:33 MCH 26 L (28-32) pg RDW 15.4 H (13.2-15.2) % Winn % (Auto) 10.4 H (0.0-7.3) % Winn # (Auto) 0.9 H (0.0-0.8) K/mm3 Chloride 107.6 H (98-107) mmol/L BUN 24 H (7-17) mg/dL Creatinine 1.4 H (0.6-1.2) mg/dL Glucose 122 H (65-100) mg/dL POC Glucose 152 H (70-105) mg/dL Total Creatine Kinase 29 L (30-135) units/L CK-MB (CK-2) Rel Index 7.5 H (0-4) Albumin 3.5 L (3.9-5) g/dL HEART Score - HEART Score Troponin: Troponin T 0.024 ng/mL (0.00-0.029) 05/09/22 12:38
[2022-05-10] MEDS: ALISKIREN 300 MG PO SCH (17:24)
[2022-05-10] MEDS: MIRTAZAPINE 15 MG TAB PO SCH (22:37)
[2022-05-10] MEDS: PRAVASTATIN 40 MG TAB PO SCH (22:39)
[2022-05-10] MEDS: INSULIN LISPRO 100 UNIT/ML SUB-Q SCH (22:53)
[2022-05-11] MEDS: INSULIN LISPRO 100 UNIT/ML SUB-Q SCH ×4 (07:30→22:26)
[2022-05-11] MEDS: NIFEdipine XL 30 MG TAB PO SCH (10:07)
[2022-05-11] MEDS: methIMAzole 5 MG TAB PO SCH ×2 (10:07→22:26)
[2022-05-11] MEDS: risperiDONE 1 MG TAB PO SCH ×2 (10:08→22:28)
[2022-05-11] MEDS: ASPIRIN 325 MG TAB PO SCH (10:08)
[2022-05-11] MEDS: NIFEdipine XL 90 MG TAB PO SCH (10:08)
[2022-05-11] MEDS: VALPROIC ACID 250 MG/5 ML ORAL LIQD PO SCH ×2 (10:08→22:26)
[2022-05-11] MEDS: cloNIDine 0.1 MG TAB PO SCH (10:08)
[2022-05-11] MEDS: carvediloL 25 MG TAB PO SCH ×2 (10:09→22:28)
[2022-05-11] MEDS: ALISKIREN 300 MG PO SCH (10:13)
--- NOTE | 2022-05-11 10:20 | Progress Note ---
Assessment and Plan 76 YO Female with Vascular Dementia with Behavioral Disturbance, Cerebral Atherosclerosis, HTN, HLD, DM, Metabolic Syndrome, Obesity Hypoventilation Syndrome, Hyperthyroidism, Psychosis presents ED for evaluation. Patient was previously admitted [facility] for psychiatric stabilization. Patient was found by [facility] staff to have decreased responsiveness. Patient discharged from [facility] and send back to ED for evaluation. Daughter reports 5/6 assistance with activities of daily living with increased bedbound status. Patient has palliative performance score of 40%. Patient admitted to hospitalist service for possible stroke work-up. 05/10/22: Patient apparently does not have any neurological deficit today. Work- up still pending. Discussed with daughter at the bedside and she is interested in hospice service. Patient dementia seems to be advancing and now she has a very poor appetite and completely bedbound requiring full assistance. Waiting on case management to set up hospice service. 05/11: Pending placement, continue diet and continue to provide supportive care Assessment and plan -- CVA (cerebral vascular accident) versus syncope Admitted with CVA protocol: CTA, neuro check, seizure precaution, aspiration precautions, fall precautions, physical therapy consulted, Occupational Therapy consulted, speech therapy consulted, antiplatelet therapy, lipid panel, statin therapy, echocardiogram, carotid Doppler. Continue to follow with frequent neuro exam Cardiac consistent carb diet, for pending work-up --Advanced dementia, continue supportive care Family requesting SNF placement with hospice service -- Diabetes Consistent carbohydrate diet, Accu-Chek, insulin protocol, hypoglycemia protocol. -- Hyperthyroidism, continue home meds -- HTN (hypertension) Monitor blood pressure every shift, continue medical management. Permissive hypertension overnight. -- Hyperlipidemia Statin therapy, lipid panel, low-cholesterol diet, --RAYMON, likely vasomotor nephropathy, follow BMP --DVT prophylaxis, Lovenox -- Advance care planning Disease education conducted, care plan discussed, diagnoses discussed, prognosis discussed, discussed CODE STATUS with patient daughter Nicole [phone]. Patient daughter states that she will make determination regarding CODE STATUS in the future. Patient daughter counseled regarding patient prognosis. Patient daughter reports that she is unable to care for patient at home and request shelter facility placement with hospice care. [facility] consulted as per family request. +30 minutes. -- Pending stroke work-up, PT OT eval. continue to provide supportive care. Pending hospice Subjective Date of service: 05/11/22 Interval history: Patient seen and examined. Medical records and medication list reviewed. No acute event overnight noted by the RN. Patient complains of generalized body ache. tolerating diet Discussed plan of care at bedside with patient's daughter. Patient daughter requested for hospice Objective - Exam Narrative Exam: GENERAL: well-developed and well-nourished elderly white female lying on bed appeared to be in no discomfort. HEENT: Normocephalic. Atraumatic. No conjunctival congestion or icterus. Patient has moist mucous membranes. NECK: Supple. Trachea midline. CHEST/LUNGS: Clear to auscultated bilaterally, breathing nonlabored. No wheezes crackles or rhonchi. HEART/CARDIOVASCULAR: Regular in rate and rhythm. S1 and S2 positive. ABDOMEN: Abdomen is soft, nontender. Patient has normal bowel sounds. SKIN: There is no rash. Warm and dry. NEURO: No focal motor deficit. Follows command. Generalized weakness MUSCULOSKELETAL: No joint effusion or tenderness. EXTRIMITY: No edema, no cyanosis or clubbing. PSYCH: Cooperative but anxious. - Constitutional Vitals: Vital Signs - 12hr 05/10/22 05/10/22 05/10/22 22:21 22:26 23:45 Temperature Pulse Rate 70 70 Respiratory Rate Blood Pressure 93/46 93/46 Blood Pressure [Left] Blood Pressure 110/60 [Right] O2 Sat by Pulse Oximetry 05/11/22 05:44 Temperature 99.5 F Pulse Rate 83 Respiratory 18 Rate Blood Pressure Blood Pressure 108/51 [Left] Blood Pressure [Right] O2 Sat by Pulse 95 Oximetry - Labs CBC & Chem 7: 05/09/22 12:38 05/09/22 12:38 Labs: Abnormal lab results 05/10/22 05/10/22 05/10/22 Range/Units 07:49 11:05 16:47 POC Glucose 128 H 142 H 267 H (70-105) mg/dL 05/10/22 05/11/22 Range/Units 21:58 08:00 POC Glucose 236 H 145 H (70-105) mg/dL HEART Score - HEART Score Troponin: Troponin T 0.024 ng/mL (0.00-0.029) 05/09/22 12:38
--- NOTE | 2022-05-11 12:46 | Vascular Lab Report ---
DUPLEX DOPPLER ULTRASOUND CAROTID, BILATERAL INDICATION / CLINICAL INFORMATION: stroke. COMPARISON: CTA neck dated 05/09/22 FINDINGS: RIGHT CAROTID: Mild plaque - PLAQUE ESTIMATE (%): < 50% - CCA velocity: 64 cm/sec. - ICA peak systolic velocity: 93 cm/sec. - ICA/CCA PSV Ratio: Less than 2 Right Vertebral Artery: Antegrade flow. LEFT CAROTID: Mild plaque - PLAQUE ESTIMATE (%): < 50% - CCA velocity: 63 cm/sec. - ICA peak systolic velocity: 60 cm/sec. - ICA/CCA PSV Ratio: Less than 2 Left Vertebral Artery: Antegrade flow. IMPRESSION: 1. Right Internal Carotid Artery: Less than 50% diameter stenosis. 2. Left Internal Carotid Artery: Less than 50% diameter stenosis. Velocity criteria are extrapolated from diameter data as defined by the Society of Radiologists in Ul trasound Consensus Conference, Radiology 2003; 229;340-346. NO STENOSIS (NORMAL) - Plaque = none; ICA PSV < 125 cm/sec; ICA/CCA PSV Ratio < 2.0 <50% STENOSIS - Plaque < 50%; ICA PSV < 125 cm/sec; ICA/CCA PSV Ratio < 2.0 50-69% STENOSIS - Plaque > 50%; ICA PSV = 125-230 cm/sec; ICA/CCA PSV Ratio = 2.0-4.0 >70% BUT <100% STENOSIS - Plaque > 50%; ICA PSV > 230 cm/sec; ICA/CCA PSV Ratio > 4.0 NEAR OCCLUSION - Plaque = visible lumen; ICA PSV = high/low/none; ICA/CCA PSV Ratio = variable TOTAL OCCLUSION - Plaque = no lumen; ICA PSV = none; ICA/CCA PSV Ratio = N/A Signer Name: Sammie Brown MD Signed: 05/11/2022 12:42 PM Workstation Name: [id number]
--- NOTE | 2022-05-11 19:39 | XRay Report ---
RIGHT FOREARM 2 VIEW(S) INDICATION / CLINICAL INFORMATION: patient complain arm hurts COMPARISON: None available. FINDINGS: BONES / JOINT(S): No acute fracture or subluxation. No significant arthritis. SOFT TISSUES: No significant abnormality. ADDITIONAL FINDINGS: None. IMPRESSION: 1. No acute findings. Signer Name: Sammie Brown MD Signed: 05/11/2022 7:35 PM Workstation Name: [id number]
[2022-05-11] MEDS ORDERED: ENOXAPARIN 40 MG/0.4 ML INJ SUB-Q SCH (22:00)
[2022-05-11] MEDS ORDERED: INSULIN LISPRO 100 UNIT/ML SUB-Q SCH (22:00)
[2022-05-11] MEDS ORDERED: SEROQUEL 25 MG PO SCH (22:00)
[2022-05-11] MEDS: MIRTAZAPINE 15 MG TAB PO SCH (22:27)
[2022-05-11] MEDS: PRAVASTATIN 40 MG TAB PO SCH (22:28)
[2022-05-11] MEDS: DONEPEZIL 10 MG TAB PO SCH (22:28)
[2022-05-12 01:42] LABS: Calcium 8.6 mg/dL (8.4-10.2)
[2022-05-12] MEDS: INSULIN LISPRO 100 UNIT/ML SUB-Q SCH ×4 (08:08→22:03)
[2022-05-12] MEDS: NIFEdipine XL 90 MG TAB PO SCH (09:09)
[2022-05-12] MEDS: ASPIRIN 325 MG TAB PO SCH (09:09)
[2022-05-12] MEDS: risperiDONE 1 MG TAB PO SCH ×2 (09:09→22:07)
[2022-05-12] MEDS: methIMAzole 5 MG TAB PO SCH ×2 (09:09→22:02)
[2022-05-12] MEDS: carvediloL 25 MG TAB PO SCH ×2 (09:09→22:04)
[2022-05-12] MEDS: VALPROIC ACID 250 MG/5 ML ORAL LIQD PO SCH ×2 (10:34→22:01)
[2022-05-12] MEDS: SODIUM CHLORIDE 0.9% 1000 ML 1,000 ML IV SCH (10:39)
[2022-05-12] MEDS: ALISKIREN 300 MG PO SCH (10:45)
--- NOTE | 2022-05-12 11:38 | Progress Note ---
Assessment and Plan Assessment and plan: 76 YO Female with Vascular Dementia with Behavioral Disturbance, Cerebral Atherosclerosis, HTN, HLD, DM, Metabolic Syndrome, Obesity Hypoventilation Syndrome, Hyperthyroidism, Psychosis presents ED for evaluation. Patient was previously [facility] for psychiatric stabilization. Patient was found by [facility] staff to have decreased responsiveness. Patient discharged from [facility] and send back to ED for evaluation. Daughter reports 5/6 assistance with activities of daily living with increased bedbound status. Patient has palliative performance score of 40%. Patient admitted to hospitalist service for possible stroke work-up. 05/10/22: Patient apparently does not have any neurological deficit today. Work- up still pending. Discussed with daughter at the bedside and she is interested in hospice service. Patient dementia seems to be advancing and now she has a very poor appetite and completely bedbound requiring full assistance. Waiting on case management to set up hospice service. 05/11: Pending placement, continue diet and continue to provide supportive care 05/12:Patient clinically stable. Awaiting discharge Assessment and plan #CVA (cerebral vascular accident) versus syncope Admitted with CVA protocol: CTA, neuro check, seizure precaution, aspiration precautions, fall precautions, physical therapy consulted, Occupational Therapy consulted, speech therapy consulted, antiplatelet therapy, lipid panel, statin therapy, echocardiogram, carotid Doppler. Continue to follow with frequent neuro exam #RAYMON, likely vasomotor nephropathy -urine sodium and creatinine ordered -IVFs started, if Creatinine continues to rise can consider Nephrology consult -avoid nephrotoxins and renally dose medications #Advanced dementia -continue supportive care -Family requesting SNF placement with hospice service #Type II Diabetes -Consistent carbohydrate diet, Accu-Chek, insulin protocol, hypoglycemia protocol. #Hyperthyroidism -continue synthroid #HTN (hypertension) -Monitor blood pressure every shift, continue medical management. Permissive hypertension overnight. #Hyperlipidemia -continuie statin #Advance care planning -Disease education conducted, care plan discussed, diagnoses discussed, prognosis discussed, discussed CODE STATUS with patient daughter Nicole [phone]. Patient daughter states that she will make determination regarding CODE STATUS in the future. Patient daughter counseled regarding patient prognosis. Patient daughter reports that she is unable to care for patient at home and request intermediate facility placement with hospice care. [facility] hospice consulted as per family request. +30 minutes. History Interval history: Patient seen at the bedside. We discussed current care plan. Patient has no complaints at this time. She is currently waiting for placement. Hospitalist Physical - Physical exam Narrative exam: GENERAL: Well-developed well-nourished. In no acute distress. HEENT: Normocephalic. Atraumatic. NECK: Supple. CHEST/LUNGS: CTAB on room air HEART/CARDIOVASCULAR: RRR. No murmur, rubs or gallops appreciated. ABDOMEN: +BS. NT/ND. SKIN: No rashes noted. NEURO: No focal motor deficit. Follows all commands. MUSCULOSKELETAL: No joint effusion EXTREMITIES: No cyanosis, clubbing or edema. PSYCH: Cooperative. - Constitutional Vitals: Temp Pulse Resp BP Pulse Ox 98.6 F 75 18 134/62 95 05/12/22 05:30 05/12/22 09:09 05/12/22 05:30 05/12/22 09:09 05/12/22 07:26 General appearance: Present: mild distress HEART Score - HEART Score Troponin: Troponin T 0.024 ng/mL (0.00-0.029) 05/09/22 12:38 Results - Labs CBC & Chem 7: 05/09/22 12:38 05/12/22 01:02 Labs: Laboratory Last Values WBC 8.8 K/mm3 (4.5-11.0) 05/09/22 12:38 RBC 4.87 M/mm3 (3.65-5.03) 05/09/22 12:38 Hgb 12.5 gm/dl (10.1-14.3) 05/09/22 12:38 Hct 38.9 % (30.3-42.9) 05/09/22 12:38 MCV 80 fl (79-97) 05/09/22 12:38 MCH 26 pg (28-32) L 05/09/22 12:38 MCHC 32 % (30-34) 05/09/22 12:38 RDW 15.4 % (13.2-15.2) H 05/09/22 12:38 Plt Count 310 K/mm3 (140-440) 05/09/22 12:38 Lymph % (Auto) 25.2 % (13.4-35.0) 05/09/22 12:38 [place] % (Auto) 10.4 % (0.0-7.3) H 05/09/22 12:38 Eos % (Auto) 2.6 % (0.0-4.3) 05/09/22 12:38 Baso % (Auto) 0.7 % (0.0-1.8) 05/09/22 12:38 Lymph # (Auto) 2.2 K/mm3 (1.2-5.4) 05/09/22 12:38 [place] # (Auto) 0.9 K/mm3 (0.0-0.8) H 05/09/22 12:38 Eos # (Auto) 0.2 K/mm3 (0.0-0.4) 05/09/22 12:38 Baso # (Auto) 0.1 K/mm3 (0.0-0.1) 05/09/22 12:38 Seg Neutrophils % 61.1 % (40.0-70.0) 05/09/22 12:38 Seg Neutrophils # 5.4 K/mm3 (1.8-7.7) 05/09/22 12:38 PT 13.5 Sec. (12.2-14.9) 05/09/22 12:38 INR 0.93 (0.87-1.13) 05/09/22 12:38 APTT 26.6 Sec. (24.2-36.6) 05/09/22 12:38 Thrombin Time 17.5 Sec. (15.1-19.6) 05/09/22 12:38 Sodium 142 mmol/L (137-145) 05/12/22 01:02 Potassium 4.0 mmol/L (3.6-5.0) 05/12/22 01:02 Chloride 106.3 mmol/L (98-107) 05/12/22 01:02 Carbon Dioxide 24 mmol/L (22-30) 05/12/22 01:02 Anion Gap 16 mmol/L 05/12/22 01:02 BUN 44 mg/dL (7-17) H 05/12/22 01:02 Creatinine 2.1 mg/dL (0.6-1.2) H 05/12/22 01:02 Estimated GFR 28 ml/min 05/12/22 01:02 BUN/Creatinine Ratio 21 % 05/12/22 01:02 Glucose 119 mg/dL (65-100) H 05/12/22 01:02 POC Glucose 171 mg/dL (70-105) H 05/11/22 21:41 Calcium 8.6 mg/dL (8.4-10.2) 05/12/22 01:02 Total Bilirubin 0.40 mg/dL (0.1-1.2) 05/09/22 12:38 AST 21 units/L (5-40) 05/09/22 12:38 ALT 19 units/L (7-56) 05/09/22 12:38 Alkaline Phosphatase 104 units/L (35-129) 05/09/22 12:38 Total Creatine Kinase 29 units/L (30-135) L 05/09/22 12:38 CK-MB (CK-2) 2.2 ng/mL (0.0-4.0) 05/09/22 12:38 CK-MB (CK-2) Rel Index 7.5 (0-4) H 05/09/22 12:38 Troponin T 0.024 ng/mL (0.00-0.029) 05/09/22 12:38 Total Protein 6.3 g/dL (6.3-8.2) 05/09/22 12:38 Albumin 3.5 g/dL (3.9-5) L 05/09/22 12:38 Albumin/Globulin Ratio 1.3 % 05/09/22 12:38 Urine Color Straw (Yellow) 05/09/22 18:14 Urine Turbidity Clear (Clear) 05/09/22 18:14 Specific [place] (Man) 1.010 (1.003-1.030) 05/09/22 18:14 Ur Protein (Man) Negative mg/dL (Negative) 05/09/22 18:14 Ur Ketones (Man) 5mg/dl (Negative) 05/09/22 18:14 Ur Nitrite (Man) Negative (Negative) 05/09/22 18:14 Urine Bilirubin (Man) Negative (Negative) 05/09/22 18:14 Leukocyte Esterase (Man) Negative (Negative) 05/09/22 18:14 Urine WBC (Auto) < 1.0 /HPF (0.0-6.0) 05/09/22 18:14 Urine RBC (Auto) 4.0 /HPF (0.0-6.0) 05/09/22 18:14 U Epithel Cells (Auto) 1.0 /HPF (0-13.0) 05/09/22 18:14 Urine RBC (Manual) Negative (Negative) 05/09/22 18:14 Urine Opiates Screen Negative 05/09/22 18:14 Urine Methadone Screen Negative 05/09/22 18:14 Ur Barbiturates Screen Negative 05/09/22 18:14 Ur Phencyclidine Scrn Negative 05/09/22 18:14 Ur Amphetamines Screen Negative 05/09/22 18:14 U Benzodiazepines Scrn Negative 05/09/22 18:14 Urine Cocaine Screen Negative 05/09/22 18:14 U Marijuana (THC) Screen Negative 05/09/22 18:14 Drugs of Abuse Note Disclamer 05/09/22 18:14 Loya/IV: Voiding Method Incontinent Active Medications - Current Medications Current Medications: Generic Name Dose Route Start Last Admin Trade Name Freq PRN Reason Stop Dose Admin Acetaminophen 650 mg 05/09/22 17:47 Acetaminophen 325 Mg Tab PO Q4H PRN Pain, Mild (1-3) Aspirin 325 mg 05/10/22 10:00 05/12/22 09:09 Aspirin 325 Mg Tab PO 325 mg QDAY TOÑO Administration Atorvastatin Calcium 40 mg 05/09/22 22:00 05/11/22 22:27 Atorvastatin 40 Mg Tab PO 40 mg QHS TOÑO Administration Bisacodyl 10 mg 05/09/22 17:47 Bisacodyl 10 Mg Rect Supp [place] QDAY PRN Constipation Carvedilol 25 mg 05/09/22 22:00 05/12/22 09:09 Carvedilol 25 Mg Tab PO 25 mg Q12HR TOÑO Administration Donepezil HCl 10 mg 05/09/22 22:00 05/11/22 22:28 Donepezil 10 Mg Tab PO 10 mg QHS TOÑO Administration Enoxaparin Sodium 30 mg 05/12/22 22:00 Enoxaparin 30 Mg/0.3 Ml Inj SUB-Q QDAY@2200 [facility] Protocol Hydralazine HCl 10 mg 05/09/22 18:00 Hydralazine 20 Mg/1 Ml Inj IV Q6HR PRN Hypertension Hydromorphone HCl 0.5 mg 05/09/22 17:47 Hydromorphone 0.5 Mg/0.5 Ml Inj IV Q13H PRN Pain , Severe (7-10) Sodium Chloride 1,000 mls @ 100 mls/hr 05/12/22 08:30 05/12/22 10:39 Nacl 0.9% 1000 Ml IV 100 mls/hr DIRECT TOÑO Administration Insulin Human Lispro 0 unit 05/10/22 23:00 05/12/22 08:08 Insulin Lispro 100 Unit/Ml SUB-Q 2 unit ACHS TOÑO Administration Protocol Magnesium Hydroxide 30 ml 05/09/22 17:47 Magnesium Hydroxide (Mom) Oral Liqd Udc PO Q4H PRN Constipation Methimazole 5 mg 05/09/22 22:00 05/12/22 09:09 Methimazole 5 Mg Tab PO 5 mg BID TOÑO Administration Metoclopramide HCl 10 mg 05/09/22 17:47 Metoclopramide 10 Mg Tab PO Q6H PRN Nausea And Vomiting Mirtazapine 7.5 mg 05/09/22 22:00 05/11/22 22:27 Mirtazapine 15 Mg Tab PO 7.5 mg QHS TOÑO Administration Miscellaneous Medication 300 mg 05/10/22 17:00 05/12/22 10:45 [place] PO Not Given DAILY TOÑO Nifedipine 90 mg 05/10/22 10:00 05/12/22 09:09 Nifedipine Xl 90 Mg Tab PO 90 mg QDAY TOÑO Administration Ondansetron HCl 4 mg 05/09/22 17:47 Ondansetron 4 Mg/2 Ml Inj IV Q8H PRN Nausea And Vomiting Oxycodone/Acetaminophen 1 tab 05/09/22 17:47 Oxycodone /Acetaminophen 5-325mg Tab PO Q16H PRN Pain, Moderate (4-6) Pravastatin Sodium 40 mg 05/09/22 22:00 05/11/22 22:28 Pravastatin 40 Mg Tab PO 40 mg QHS TOÑO Administration Promethazine HCl 25 mg 05/09/22 17:47 Promethazine 25 Mg Rect Supp [place] Q6H PRN Nausea And Vomiting Risperidone 1 mg 05/09/22 22:00 05/12/22 09:09 Risperidone 1 Mg Tab PO 1 mg BID TOÑO Administration Sodium Chloride 10 ml 05/09/22 17:47 05/12/22 09:11 Sodium Chloride 0.9% 10 Ml Flush Syringe IV 10 ml PRN PRN Administration LINE FLUSH Valproic Acid 125 mg 05/09/22 22:00 05/12/22 10:34 Valproic Acid 250 Mg/5 Ml Oral Liqd PO 125 mg BID TOÑO Administration
[2022-05-12] MEDS: ENOXAPARIN 30 MG/0.3 ML INJ SUB-Q SCH (22:02)
[2022-05-12] MEDS: PRAVASTATIN 40 MG TAB PO SCH (22:02)
[2022-05-12] MEDS: MIRTAZAPINE 15 MG TAB PO SCH (22:02)
[2022-05-12] MEDS: DONEPEZIL 10 MG TAB PO SCH (22:03)
[2022-05-13] MEDS: SODIUM CHLORIDE 0.9% 1000 ML 1,000 ML IV SCH ×2 (02:50→16:26)
[2022-05-13 08:22] LABS: Calcium 8.5 mg/dL (8.4-10.2)
[2022-05-13] MEDS: INSULIN LISPRO 100 UNIT/ML SUB-Q SCH ×4 (08:23→22:28)
[2022-05-13] MEDS: methIMAzole 5 MG TAB PO SCH ×2 (09:51→22:27)
[2022-05-13] MEDS: risperiDONE 1 MG TAB PO SCH ×2 (09:51→22:27)
[2022-05-13] MEDS: carvediloL 25 MG TAB PO SCH ×2 (09:51→22:26)
[2022-05-13] MEDS: NIFEdipine XL 90 MG TAB PO SCH (09:51)
[2022-05-13] MEDS: ASPIRIN 325 MG TAB PO SCH (09:51)
[2022-05-13] MEDS: ALISKIREN 300 MG PO SCH (09:51)
[2022-05-13] MEDS: VALPROIC ACID 250 MG/5 ML ORAL LIQD PO SCH ×2 (09:52→22:27)
--- NOTE | 2022-05-13 14:11 | Progress Note ---
Assessment and Plan Assessment and plan: 76 YO Female with Vascular Dementia with Behavioral Disturbance, Cerebral Atherosclerosis, HTN, HLD, DM, Metabolic Syndrome, Obesity Hypoventilation Syndrome, Hyperthyroidism, Psychosis presents ED for evaluation. Patient was [facility] for psychiatric stabilization. Patient was found by [facility] staff to have decreased responsiveness. Patient discharged from [facility] and send back to ED for evaluation. Daughter reports 5/6 assistance with activities of daily living with increased bedbound status. Patient has palliative performance score of 40%. Patient admitted to hospitalist service for possible stroke work-up. 05/10/22: Patient apparently does not have any neurological deficit today. Work- up still pending. Discussed with daughter at the bedside and she is interested in hospice service. Patient dementia seems to be advancing and now she has a very poor appetite and completely bedbound requiring full assistance. Waiting on case management to set up hospice service. 05/11: Pending placement, continue diet and continue to provide supportive care 05/12:Patient clinically stable. Awaiting discharge 05/13/2022: Patient pending physical therapy/Occupational Therapy evaluation. [facility] ([facility] Patient is pending SNF authorizations. Patient's daughter was also talked to her about hospice by Dr. Dowell upon admission. Joey was contacted at that point in time. Assessment and plan: #CVA (cerebral vascular accident) versus syncope Admitted with CVA protocol: CTA, neuro check, seizure precaution, aspiration precautions, fall precautions, physical therapy consulted, Occupational Therapy consulted, speech therapy consulted, antiplatelet therapy, lipid panel, statin therapy, echocardiogram, carotid Doppler. Continue to follow with frequent neuro exam #RAYMON, likely vasomotor nephropathy -urine sodium and creatinine ordered -IVFs started, if Creatinine continues to rise can consider Nephrology consult -avoid nephrotoxins and renally dose medications #Advanced dementia -continue supportive care -Family requesting SNF placement with hospice service #Type II Diabetes -Consistent carbohydrate diet, Accu-Chek, insulin protocol, hypoglycemia protocol. #Hyperthyroidism -continue synthroid #HTN (hypertension) -Monitor blood pressure every shift, continue medical management. Permissive hypertension overnight. #Hyperlipidemia -continuie statin #Morbid obesity #Weight loss counseling #Exercise counseling - BMI 36.9 - Counseled patient on the importance of weight loss, incorporating exercise, a nd dietary changes (lean meats, fresh fruits and vegetables, and water intake). Patient expresses understanding. - Time: +15 min #Advance care planning -Disease education conducted, care plan discussed, diagnoses discussed, prognosis discussed, discussed CODE STATUS with patient daughter Nicole [phone]. Patient daughter states that she will make determination regarding CODE STATUS in the future. Patient daughter counseled regarding patient prognosis. Patient daughter reports that she is unable to care for patient at home and request nursing home facility placement with hospice care. [facility] hospice consulted as per family request. +30 minutes. Disposition Plan: Continue medical management Total Time Spent with Patient (Minutes): 45 min History Interval history: No acute events overnight. Hospitalist Physical - Constitutional Vitals: Temp Pulse Resp BP Pulse Ox 98.6 F 76 16 135/61 94 05/13/22 04:36 05/13/22 04:36 05/13/22 04:36 05/13/22 04:36 05/13/22 13:00 General appearance: Present: no acute distress, well-nourished, obese - EENT Eyes: Present: PERRL, EOM intact ENT: hearing intact, clear oral mucosa - Neck Neck: Present: supple, normal ROM - Respiratory Respiratory effort: normal Respiratory: bilateral: CTA - Cardiovascular Rhythm: regular Heart Sounds: Present: S1 & S2 - Extremities Extremities: no ischemia, pulses intact, pulses symmetrical, No edema, normal temperature, normal color Peripheral Pulses: within normal limits - Abdominal General gastrointestinal: soft, non-tender, non-distended, normal bowel sounds - Integumentary Integumentary: Present: clear, warm, dry - Psychiatric Psychiatric: appropriate mood/affect, agitated - Neurologic Neurologic: CNII-XII intact, moves all extremities - Allied Health Allied health notes reviewed: nursing HEART Score - HEART Score Troponin: Troponin T 0.024 ng/mL (0.00-0.029) 05/09/22 12:38 Results - Labs CBC & Chem 7: 05/09/22 12:38 05/13/22 06:46 Labs: Laboratory Last Values WBC 8.8 K/mm3 (4.5-11.0) 05/09/22 12:38 RBC 4.87 M/mm3 (3.65-5.03) 05/09/22 12:38 Hgb 12.5 gm/dl (10.1-14.3) 05/09/22 12:38 Hct 38.9 % (30.3-42.9) 05/09/22 12:38 MCV 80 fl (79-97) 05/09/22 12:38 MCH 26 pg (28-32) L 05/09/22 12:38 MCHC 32 % (30-34) 05/09/22 12:38 RDW 15.4 % (13.2-15.2) H 05/09/22 12:38 Plt Count 310 K/mm3 (140-440) 05/09/22 12:38 Lymph % (Auto) 25.2 % (13.4-35.0) 05/09/22 12:38 Real % (Auto) 10.4 % (0.0-7.3) H 05/09/22 12:38 Eos % (Auto) 2.6 % (0.0-4.3) 05/09/22 12:38 Baso % (Auto) 0.7 % (0.0-1.8) 05/09/22 12:38 Lymph # (Auto) 2.2 K/mm3 (1.2-5.4) 05/09/22 12:38 Real # (Auto) 0.9 K/mm3 (0.0-0.8) H 05/09/22 12:38 Eos # (Auto) 0.2 K/mm3 (0.0-0.4) 05/09/22 12:38 Baso # (Auto) 0.1 K/mm3 (0.0-0.1) 05/09/22 12:38 Seg Neutrophils % 61.1 % (40.0-70.0) 05/09/22 12:38 Seg Neutrophils # 5.4 K/mm3 (1.8-7.7) 05/09/22 12:38 PT 13.5 Sec. (12.2-14.9) 05/09/22 12:38 INR 0.93 (0.87-1.13) 05/09/22 12:38 APTT 26.6 Sec. (24.2-36.6) 05/09/22 12:38 Thrombin Time 17.5 Sec. (15.1-19.6) 05/09/22 12:38 Sodium 142 mmol/L (137-145) 05/13/22 06:46 Potassium 4.1 mmol/L (3.6-5.0) 05/13/22 06:46 Chloride 106.8 mmol/L (98-107) 05/13/22 06:46 Carbon Dioxide 25 mmol/L (22-30) 05/13/22 06:46 Anion Gap 14 mmol/L 05/13/22 06:46 BUN 39 mg/dL (7-17) H 05/13/22 06:46 Creatinine 1.6 mg/dL (0.6-1.2) H 05/13/22 06:46 Estimated GFR 38 ml/min 05/13/22 06:46 BUN/Creatinine Ratio 24 % 05/13/22 06:46 Glucose 126 mg/dL (65-100) H 05/13/22 06:46 POC Glucose 147 mg/dL (70-105) H 05/13/22 07:05 Calcium 8.5 mg/dL (8.4-10.2) 05/13/22 06:46 Total Bilirubin 0.40 mg/dL (0.1-1.2) 05/09/22 12:38 AST 21 units/L (5-40) 05/09/22 12:38 ALT 19 units/L (7-56) 05/09/22 12:38 Alkaline Phosphatase 104 units/L (35-129) 05/09/22 12:38 Total Creatine Kinase 29 units/L (30-135) L 05/09/22 12:38 CK-MB (CK-2) 2.2 ng/mL (0.0-4.0) 05/09/22 12:38 CK-MB (CK-2) Rel Index 7.5 (0-4) H 05/09/22 12:38 Troponin T 0.024 ng/mL (0.00-0.029) 05/09/22 12:38 Total Protein 6.3 g/dL (6.3-8.2) 05/09/22 12:38 Albumin 3.5 g/dL (3.9-5) L 05/09/22 12:38 Albumin/Globulin Ratio 1.3 % 05/09/22 12:38 Urine Color Straw (Yellow) 05/09/22 18:14 Urine Turbidity Clear (Clear) 05/09/22 18:14 Specific [place] (Man) 1.010 (1.003-1.030) 05/09/22 18:14 Ur Protein (Man) Negative mg/dL (Negative) 05/09/22 18:14 Ur Ketones (Man) 5mg/dl (Negative) 05/09/22 18:14 Ur Nitrite (Man) Negative (Negative) 05/09/22 18:14 Urine Bilirubin (Man) Negative (Negative) 05/09/22 18:14 Leukocyte Esterase (Man) Negative (Negative) 05/09/22 18:14 Urine WBC (Auto) < 1.0 /HPF (0.0-6.0) 05/09/22 18:14 Urine RBC (Auto) 4.0 /HPF (0.0-6.0) 05/09/22 18:14 U Epithel Cells (Auto) 1.0 /HPF (0-13.0) 05/09/22 18:14 Urine RBC (Manual) Negative (Negative) 05/09/22 18:14 Urine Creatinine 163.0 mg/dL (0.1-20.0) H 05/13/22 10:57 Urine Sodium 48 mmol/L 05/13/22 10:57 Urine Opiates Screen Negative 05/09/22 18:14 Urine Methadone Screen Negative 05/09/22 18:14 Ur Barbiturates Screen Negative 05/09/22 18:14 Ur Phencyclidine Scrn Negative 05/09/22 18:14 Ur Amphetamines Screen Negative 05/09/22 18:14 U Benzodiazepines Scrn Negative 05/09/22 18:14 Urine Cocaine Screen Negative 05/09/22 18:14 U Marijuana (THC) Screen Negative 05/09/22 18:14 Drugs of Abuse Note Disclamer 05/09/22 18:14 Loya/IV: Voiding Method Incontinent Active Medications - Current Medications Current Medications: Generic Name Dose Route Start Last Admin Trade Name Freq PRN Reason Stop Dose Admin Acetaminophen 650 mg 05/09/22 17:47 Acetaminophen 325 Mg Tab PO Q4H PRN Pain, Mild (1-3) Aspirin 325 mg 05/10/22 10:00 05/13/22 09:51 Aspirin 325 Mg Tab PO 325 mg QDAY TOÑO Administration Atorvastatin Calcium 40 mg 05/09/22 22:00 05/12/22 22:04 Atorvastatin 40 Mg Tab PO 40 mg QHS TOÑO Administration Bisacodyl 10 mg 05/09/22 17:47 Bisacodyl 10 Mg Rect Supp ND QDAY PRN Constipation Carvedilol 25 mg 05/09/22 22:00 05/13/22 09:51 Carvedilol 25 Mg Tab PO 25 mg Q12HR TOÑO Administration Donepezil HCl 10 mg 05/09/22 22:00 05/12/22 22:03 Donepezil 10 Mg Tab PO 10 mg QHS TOÑO Administration Enoxaparin Sodium 30 mg 05/12/22 22:00 05/12/22 22:02 Enoxaparin 30 Mg/0.3 Ml Inj SUB-Q 30 mg QDAY@2200 TOÑO Administration Protocol Hydralazine HCl 10 mg 05/09/22 18:00 Hydralazine 20 Mg/1 Ml Inj IV Q6HR PRN Hypertension Hydromorphone HCl 0.5 mg 05/09/22 17:47 Hydromorphone 0.5 Mg/0.5 Ml Inj IV Q13H PRN Pain , Severe (7-10) Sodium Chloride 1,000 mls @ 100 mls/hr 05/12/22 08:30 05/13/22 02:50 Nacl 0.9% 1000 Ml IV 100 mls/hr DIRECT TOÑO Administration Insulin Human Lispro 0 unit 05/10/22 23:00 05/13/22 12:06 Insulin Lispro 100 Unit/Ml SUB-Q 3 unit ACHS TOÑO Administration Protocol Magnesium Hydroxide 30 ml 05/09/22 17:47 Magnesium Hydroxide (Mom) Oral Liqd Udc PO Q4H PRN Constipation Methimazole 5 mg 05/09/22 22:00 05/13/22 09:51 Methimazole 5 Mg Tab PO 5 mg BID TOÑO Administration Metoclopramide HCl 10 mg 05/09/22 17:47 Metoclopramide 10 Mg Tab PO Q6H PRN Nausea And Vomiting Mirtazapine 7.5 mg 05/09/22 22:00 05/12/22 22:02 Mirtazapine 15 Mg Tab PO 7.5 mg QHS TOÑO Administration Miscellaneous Medication 300 mg 05/10/22 17:00 05/13/22 09:51 Aliskiren PO 300 mg DAILY TOÑO Administration Nifedipine 90 mg 05/10/22 10:00 05/13/22 09:51 Nifedipine Xl 90 Mg Tab PO 90 mg QDAY TOÑO Administration Ondansetron HCl 4 mg 05/09/22 17:47 Ondansetron 4 Mg/2 Ml Inj IV Q8H PRN Nausea And Vomiting Oxycodone/Acetaminophen 1 tab 05/09/22 17:47 Oxycodone /Acetaminophen 5-325mg Tab PO Q16H PRN Pain, Moderate (4-6) Pravastatin Sodium 40 mg 05/09/22 22:00 05/12/22 22:02 Pravastatin 40 Mg Tab PO 40 mg QHS TOÑO Administration Promethazine HCl 25 mg 05/09/22 17:47 Promethazine 25 Mg Rect Supp ND Q6H PRN Nausea And Vomiting Risperidone 1 mg 05/09/22 22:00 05/13/22 09:51 Risperidone 1 Mg Tab PO 1 mg BID TOÑO Administration Sodium Chloride 10 ml 05/09/22 17:47 05/13/22 09:52 Sodium Chloride 0.9% 10 Ml Flush Syringe IV 10 ml PRN PRN Administration LINE FLUSH Valproic Acid 125 mg 05/09/22 22:00 05/13/22 09:52 Valproic Acid 250 Mg/5 Ml Oral Liqd PO 125 mg BID TOÑO Administration
[2022-05-13] MEDS: DONEPEZIL 10 MG TAB PO SCH (22:26)
[2022-05-13] MEDS: PRAVASTATIN 40 MG TAB PO SCH (22:26)
[2022-05-13] MEDS: MIRTAZAPINE 15 MG TAB PO SCH (22:27)
[2022-05-13] MEDS: ENOXAPARIN 30 MG/0.3 ML INJ SUB-Q SCH (22:28)
[2022-05-14] MEDS: SODIUM CHLORIDE 0.9% 1000 ML 1,000 ML IV SCH ×2 (04:40→17:37)
[2022-05-14] MEDS: INSULIN LISPRO 100 UNIT/ML SUB-Q SCH ×4 (07:30→22:00)
[2022-05-14] MEDS: VALPROIC ACID 250 MG/5 ML ORAL LIQD PO SCH ×2 (09:54→22:07)
[2022-05-14] MEDS: methIMAzole 5 MG TAB PO SCH ×2 (09:55→22:10)
[2022-05-14] MEDS: ASPIRIN 325 MG TAB PO SCH (09:55)
[2022-05-14] MEDS: ALISKIREN 300 MG PO SCH (09:56)
[2022-05-14] MEDS: carvediloL 25 MG TAB PO SCH ×2 (09:56→22:18)
[2022-05-14] MEDS: risperiDONE 1 MG TAB PO SCH ×2 (09:56→22:14)
[2022-05-14] MEDS: NIFEdipine XL 90 MG TAB PO SCH (09:56)
[2022-05-14 10:25] LABS: Calcium 8.8 mg/dL (8.4-10.2)
--- NOTE | 2022-05-14 12:14 | Progress Note ---
Assessment and Plan Assessment and plan: 76 YO Female with Vascular Dementia with Behavioral Disturbance, Cerebral Atherosclerosis, HTN, HLD, DM, Metabolic Syndrome, Obesity Hypoventilation Syndrome, Hyperthyroidism, Psychosis presents ED for evaluation. Patient was [facility] for psychiatric [facility]. Patient was found by [facility] staff to have decreased responsiveness. Patient discharged from [facility] and send back to ED for evaluation. Daughter reports 5/6 assistance with activities of daily living with increased bedbound status. Patient has palliative performance score of 40%. Patient admitted to hospitalist service for possible stroke work-up. 05/10/22: Patient apparently does not have any neurological deficit today. Work- up still pending. Discussed with daughter at the bedside and she is interested in hospice service. Patient dementia seems to be advancing and now she has a very poor appetite and completely bedbound requiring full assistance. Waiting on case management to set up hospice service. 05/11: Pending placement, continue diet and continue to provide supportive care 05/12:Patient clinically stable. Awaiting discharge 05/13/2022: Patient pending physical therapy/Occupational Therapy evaluation. Patient originated from home (not [facility] Patient is pending SNF authorizations. Patient's daughter was also talked to her about hospice by Dr. Dowell upon admission. Joey was contacted at that point in time. Assessment and plan: #CVA (cerebral vascular accident) versus syncope Admitted with CVA protocol: CTA, neuro check, seizure precaution, aspiration precautions, fall precautions, physical therapy consulted, Occupational Therapy consulted, speech therapy consulted, antiplatelet therapy, lipid panel, statin therapy, echocardiogram, carotid Doppler. Continue to follow with frequent neuro exam #RAYMON secondary to vasomotor nephropathyresolved -urine sodium and creatinine ordered -IVFs started, if Creatinine continues to rise can consider Nephrology consult -avoid nephrotoxins and renally dose medications #Advanced dementia -continue supportive care -Family requesting SNF placement with hospice service. Patient has triggered a level 2: Pending placement. #Type II Diabetes -Consistent carbohydrate diet, Accu-Chek, insulin protocol, hypoglycemia protocol. #Hyperthyroidism -continue synthroid #HTN (hypertension) -Monitor blood pressure every shift, continue medical management. Permissive hypertension overnight. #Hyperlipidemia -continuie statin #Morbid obesity #Weight loss counseling #Exercise counseling - BMI 36.9 - Counseled patient on the importance of weight loss, incorporating exercise, and dietary changes (lean meats, fresh fruits and vegetables, and water intake). Patient expresses understanding. - Time: +15 min #Advance care planning -Disease education conducted, care plan discussed, diagnoses discussed, prognosis discussed, discussed CODE STATUS with patient daughter Nicole [phone]. Patient daughter states that she will make determination regarding CODE STATUS in the future. Patient daughter counseled regarding patie nt prognosis. Patient daughter reports that she is unable to care for patient at home and request longterm facility placement with hospice care. [facility] hospice consulted as per family request. +30 minutes. Disposition Plan: Continue medical management Total Time Spent with Patient (Minutes): 30 minutes History Interval history: No acute events overnight. Hospitalist Physical - Constitutional Vitals: Temp Pulse Resp BP Pulse Ox 98.4 F 73 18 150/60 99 05/13/22 22:23 05/13/22 22:26 05/13/22 22:23 05/13/22 22:26 05/14/22 01:00 General appearance: Present: no acute distress, well-nourished, obese - EENT Eyes: Present: PERRL, EOM intact ENT: hearing intact, clear oral mucosa - Neck Neck: Present: supple, normal ROM - Respiratory Respiratory effort: normal Respiratory: right: diminished (2 L nasal cannula) - Cardiovascular Rhythm: regular Heart Sounds: Present: S1 & S2 - Extremities Extremities: no ischemia, pulses intact, pulses symmetrical, No edema, normal temperature, normal color Peripheral Pulses: within normal limits - Abdominal General gastrointestinal: soft, non-tender, non-distended, normal bowel sounds - Integumentary Integumentary: Present: clear, warm, dry - Psychiatric Psychiatric: cooperative - Neurologic Neurologic: CNII-XII intact, moves all extremities - Allied Health Allied health notes reviewed: nursing, case management HEART Score - HEART Score Troponin: Troponin T 0.024 ng/mL (0.00-0.029) 05/09/22 12:38 Results - Labs CBC & Chem 7: 05/09/22 12:38 05/14/22 09:00 Labs: Laboratory Last Values WBC 8.8 K/mm3 (4.5-11.0) 05/09/22 12:38 RBC 4.87 M/mm3 (3.65-5.03) 05/09/22 12:38 Hgb 12.5 gm/dl (10.1-14.3) 05/09/22 12:38 Hct 38.9 % (30.3-42.9) 05/09/22 12:38 MCV 80 fl (79-97) 05/09/22 12:38 MCH 26 pg (28-32) L 05/09/22 12:38 MCHC 32 % (30-34) 05/09/22 12:38 RDW 15.4 % (13.2-15.2) H 05/09/22 12:38 Plt Count 310 K/mm3 (140-440) 05/09/22 12:38 Lymph % (Auto) 25.2 % (13.4-35.0) 05/09/22 12:38 [place] % (Auto) 10.4 % (0.0-7.3) H 05/09/22 12:38 Eos % (Auto) 2.6 % (0.0-4.3) 05/09/22 12:38 Baso % (Auto) 0.7 % (0.0-1.8) 05/09/22 12:38 Lymph # (Auto) 2.2 K/mm3 (1.2-5.4) 05/09/22 12:38 [place] # (Auto) 0.9 K/mm3 (0.0-0.8) H 05/09/22 12:38 Eos # (Auto) 0.2 K/mm3 (0.0-0.4) 05/09/22 12:38 Baso # (Auto) 0.1 K/mm3 (0.0-0.1) 05/09/22 12:38 Seg Neutrophils % 61.1 % (40.0-70.0) 05/09/22 12:38 Seg Neutrophils # 5.4 K/mm3 (1.8-7.7) 05/09/22 12:38 PT 13.5 Sec. (12.2-14.9) 05/09/22 12:38 INR 0.93 (0.87-1.13) 05/09/22 12:38 APTT 26.6 Sec. (24.2-36.6) 05/09/22 12:38 Thrombin Time 17.5 Sec. (15.1-19.6) 05/09/22 12:38 Sodium 137 mmol/L (137-145) 05/14/22 09:00 Potassium 4.4 mmol/L (3.6-5.0) 05/14/22 09:00 Chloride 106.1 mmol/L (98-107) 05/14/22 09:00 Carbon Dioxide 21 mmol/L (22-30) L 05/14/22 09:00 Anion Gap 14 mmol/L 05/14/22 09:00 BUN 23 mg/dL (7-17) H 05/14/22 09:00 Creatinine 1.1 mg/dL (0.6-1.2) 05/14/22 09:00 Estimated GFR 58 ml/min 05/14/22 09:00 BUN/Creatinine Ratio 21 % 05/14/22 09:00 Glucose 196 mg/dL (65-100) H 05/14/22 09:00 POC Glucose 136 mg/dL (70-105) H 05/14/22 07:23 Calcium 8.8 mg/dL (8.4-10.2) 05/14/22 09:00 Total Bilirubin 0.40 mg/dL (0.1-1.2) 05/09/22 12:38 AST 21 units/L (5-40) 05/09/22 12:38 ALT 19 units/L (7-56) 05/09/22 12:38 Alkaline Phosphatase 104 units/L (35-129) 05/09/22 12:38 Total Creatine Kinase 29 units/L (30-135) L 05/09/22 12:38 CK-MB (CK-2) 2.2 ng/mL (0.0-4.0) 05/09/22 12:38 CK-MB (CK-2) Rel Index 7.5 (0-4) H 05/09/22 12:38 Troponin T 0.024 ng/mL (0.00-0.029) 05/09/22 12:38 Total Protein 6.3 g/dL (6.3-8.2) 05/09/22 12:38 Albumin 3.5 g/dL (3.9-5) L 05/09/22 12:38 Albumin/Globulin Ratio 1.3 % 05/09/22 12:38 Urine Color Straw (Yellow) 05/09/22 18:14 Urine Turbidity Clear (Clear) 05/09/22 18:14 Specific [place] (Man) 1.010 (1.003-1.030) 05/09/22 18:14 Ur Protein (Man) Negative mg/dL (Negative) 05/09/22 18:14 Ur Ketones (Man) 5mg/dl (Negative) 05/09/22 18:14 Ur Nitrite (Man) Negative (Negative) 05/09/22 18:14 Urine Bilirubin (Man) Negative (Negative) 05/09/22 18:14 Leukocyte Esterase (Man) Negative (Negative) 05/09/22 18:14 Urine WBC (Auto) < 1.0 /HPF (0.0-6.0) 05/09/22 18:14 Urine RBC (Auto) 4.0 /HPF (0.0-6.0) 05/09/22 18:14 U Epithel Cells (Auto) 1.0 /HPF (0-13.0) 05/09/22 18:14 Urine RBC (Manual) Negative (Negative) 05/09/22 18:14 Urine Creatinine 163.0 mg/dL (0.1-20.0) H 05/13/22 10:57 Urine Sodium 48 mmol/L 05/13/22 10:57 Urine Opiates Screen Negative 05/09/22 18:14 Urine Methadone Screen Negative 05/09/22 18:14 Ur Barbiturates Screen Negative 05/09/22 18:14 Ur Phencyclidine Scrn Negative 05/09/22 18:14 Ur Amphetamines Screen Negative 05/09/22 18:14 U Benzodiazepines Scrn Negative 05/09/22 18:14 Urine Cocaine Screen Negative 05/09/22 18:14 U Marijuana (THC) Screen Negative 05/09/22 18:14 Drugs of Abuse Note Disclamer 05/09/22 18:14 Loya/IV: Voiding Method Incontinent Active Medications - Current Medications Current Medications: Generic Name Dose Route Start Last Admin Trade Name Freq PRN Reason Stop Dose Admin Acetaminophen 650 mg 05/09/22 17:47 Acetaminophen 325 Mg Tab PO Q4H PRN Pain, Mild (1-3) Aspirin 325 mg 05/10/22 10:00 05/14/22 09:55 Aspirin 325 Mg Tab PO 325 mg QDAY TOÑO Administration Atorvastatin Calcium 40 mg 05/09/22 22:00 05/13/22 22:27 Atorvastatin 40 Mg Tab PO 40 mg QHS TOÑO Administration Bisacodyl 10 mg 05/09/22 17:47 Bisacodyl 10 Mg Rect Supp MO QDAY PRN Constipation Carvedilol 25 mg 05/09/22 22:00 05/14/22 09:56 Carvedilol 25 Mg Tab PO 25 mg Q12HR TOÑO Administration Donepezil HCl 10 mg 05/09/22 22:00 05/13/22 22:26 Donepezil 10 Mg Tab PO 10 mg QHS TOÑO Administration Enoxaparin Sodium 30 mg 05/12/22 22:00 05/13/22 22:28 Enoxaparin 30 Mg/0.3 Ml Inj SUB-Q 30 mg QDAY@2200 TOÑO Administration Protocol Hydralazine HCl 10 mg 05/09/22 18:00 Hydralazine 20 Mg/1 Ml Inj IV Q6HR PRN Hypertension Hydromorphone HCl 0.5 mg 05/09/22 17:47 Hydromorphone 0.5 Mg/0.5 Ml Inj IV Q13H PRN Pain , Severe (7-10) Sodium Chloride 1,000 mls @ 100 mls/hr 05/12/22 08:30 05/14/22 04:40 Nacl 0.9% 1000 Ml IV 100 mls/hr DIRECT TOÑO Administration Insulin Human Lispro 0 unit 05/10/22 23:00 05/14/22 07:30 Insulin Lispro 100 Unit/Ml SUB-Q Not Given ACHS [facility] Protocol Magnesium Hydroxide 30 ml 05/09/22 17:47 Magnesium Hydroxide (Mom) Oral Liqd Udc PO Q4H PRN Constipation Methimazole 5 mg 05/09/22 22:00 05/14/22 09:55 Methimazole 5 Mg Tab PO 5 mg BID TOÑO Administration Metoclopramide HCl 10 mg 05/09/22 17:47 Metoclopramide 10 Mg Tab PO Q6H PRN Nausea And Vomiting Mirtazapine 7.5 mg 05/09/22 22:00 05/13/22 22:27 Mirtazapine 15 Mg Tab PO 7.5 mg QHS TOÑO Administration Miscellaneous Medication 300 mg 05/10/22 17:00 05/14/22 09:56 Aliskiren PO 300 mg DAILY TOÑO Administration Nifedipine 90 mg 05/10/22 10:00 05/14/22 09:56 Nifedipine Xl 90 Mg Tab PO 90 mg QDAY TOÑO Administration Ondansetron HCl 4 mg 05/09/22 17:47 Ondansetron 4 Mg/2 Ml Inj IV Q8H PRN Nausea And Vomiting Oxycodone/Acetaminophen 1 tab 05/09/22 17:47 Oxycodone /Acetaminophen 5-325mg Tab PO Q16H PRN Pain, Moderate (4-6) Pravastatin Sodium 40 mg 05/09/22 22:00 05/13/22 22:26 Pravastatin 40 Mg Tab PO 40 mg QHS TOÑO Administration Promethazine HCl 25 mg 05/09/22 17:47 Promethazine 25 Mg Rect Supp MO Q6H PRN Nausea And Vomiting Risperidone 1 mg 05/09/22 22:00 05/14/22 09:56 Risperidone 1 Mg Tab PO 1 mg BID TOÑO Administration Sodium Chloride 10 ml 05/09/22 17:47 05/13/22 09:52 Sodium Chloride 0.9% 10 Ml Flush Syringe IV 10 ml PRN PRN Administration LINE FLUSH Valproic Acid 125 mg 05/09/22 22:00 05/14/22 09:54 Valproic Acid 250 Mg/5 Ml Oral Liqd PO 125 mg BID TOÑO Administration
[2022-05-14] MEDS: ACETAMINOPHEN 325 MG TAB PO PRN (12:37)
[2022-05-14] MEDS ORDERED: ENOXAPARIN 40 MG/0.4 ML INJ SUB-Q SCH (22:00)
[2022-05-14] MEDS: DONEPEZIL 10 MG TAB PO SCH (22:06)
[2022-05-14] MEDS: MIRTAZAPINE 15 MG TAB PO SCH (22:10)
[2022-05-14] MEDS: PRAVASTATIN 40 MG TAB PO SCH (22:13)
[2022-05-15] MEDS: SODIUM CHLORIDE 0.9% 1000 ML 1,000 ML IV SCH (04:15)
[2022-05-15] MEDS: INSULIN LISPRO 100 UNIT/ML SUB-Q SCH ×3 (09:07→17:08)
[2022-05-15] MEDS: ASPIRIN 325 MG TAB PO SCH (09:13)
[2022-05-15] MEDS: risperiDONE 1 MG TAB PO SCH (09:13)
[2022-05-15] MEDS: NIFEdipine XL 90 MG TAB PO SCH (09:13)
[2022-05-15] MEDS: VALPROIC ACID 250 MG/5 ML ORAL LIQD PO SCH (09:13)
[2022-05-15] MEDS: methIMAzole 5 MG TAB PO SCH (09:13)
[2022-05-15] MEDS: ALISKIREN 300 MG PO SCH (09:15)
[2022-05-15] MEDS: carvediloL 25 MG TAB PO SCH (09:20)
--- NOTE | 2022-05-15 13:49 | Discharge Summary ---
Providers - Providers Date of Admission: 05/09/22 17:49 Date of discharge: 05/15/22 Attending physician: AMINA LOVE MD 05/09/22 17:49 Occupational Therapy Evaluate and Treat [CONS] Routine Comment: Reason For Exam: Deconditioning Physical Therapy Evaluation and Treat [CONS] Routine Comment: Reason For Exam: Deconditioning 05/09/22 17:59 Consult to Case Management [CONS] Routine Services Needed at Discharge: Other Notified:: in am Additional Physician Instructions: SNF Placement with Hospice Care 05/11/22 10:19 Consult to Case Management [CONS] Routine Services Needed at Discharge: Other Notified:: CM Additional Physician Instructions: hospice Primary care physician: JUDI IRWIN Hospitalization Reason for admission: Acute CVAruled out, syncope, RAYMON secondary to vasomotor nephropathy Condition: Fair Pertinent studies: Reviewed. Procedures: None. Hospital course: The patient is a 76 YO Female with Vascular Dementia with Behavioral Disturbance, Cerebral Atherosclerosis, HTN, HLD, DM, Metabolic Syndrome, Obesity Hypoventilation Syndrome, Hyperthyroidism, Psychosis presents ED for evaluation. Patient was previously admitted [facility] for psychiatric stabilization. Patient was found by [facility] staff to have decreased responsiveness. Patient discharged from [facility] and send back to ED for evaluation. Daughter reports 5/6 assistance with activities of daily living with increased bedbound status. Patient has palliative performance score of 40%. Patient admitted to hospitalist service for possible stroke work-up. Patient was found to have no neurological deficits. Patient was found to have unremarkable carotid Dopplers. Patient underwent TTE (05/11/2022) revealing EF 50-55% with normal-sized LV, normal LV systolic function, mild concentric LVH, normal LV segmental wall motion, normal RV, normal RV systolic function, normal LA size, normal RA size, and the patient was not found to have ASD or PFO. Patient was found to have an RAYMON secondary to vasomotor nephropathy that is since been resolved with IV fluid resuscitation and avoiding nephrotoxic medications. The patient has since been accepted into SNF with hospice services (which was agreed to by the patient's daughter). The patient is medically clear for discharge. Disposition: [facility] Final Discharge Diagnosis (Prints w/discharge instructions): Acute CVAruled out, syncope, RAYMON secondary to vasomotor nephropathy, advanced dementia, type 2 diabetes mellitus, hypothyroidism, hypertension, hyperlipidemia, morbid obesity Time spent for discharge: 45 min Core Measure Documentation - Palliative Care Palliative Care/ Comfort Measures: Hospice Care - Core Measures Any of the following diagnoses?: none Exam - Constitutional Vitals: Temp Pulse Resp BP Pulse Ox 98.9 F 73 16 141/66 98 05/15/22 04:15 05/15/22 09:20 05/15/22 04:15 05/15/22 09:20 05/15/22 09:04 General appearance: Present: no acute distress, well-nourished, obese - EENT Eyes: Present: PERRL, EOM intact ENT: hearing intact, clear oral mucosa - Neck Neck: Present: supple, normal ROM - Respiratory Respiratory effort: normal Respiratory: bilateral: diminished - Cardiovascular Rhythm: regular Heart Sounds: Present: S1 & S2 - Extremities Extremities: no ischemia, pulses intact, pulses symmetrical, No edema, normal temperature, normal color Peripheral Pulses: within normal limits - Abdominal General gastrointestinal: Present: soft, non-tender, non-distended, normal bowel sounds Female genitourinary: Present: deferred - Rectal Rectal Exam: deferred - Integumentary Integumentary: Present: clear, warm, dry - Musculoskeletal Musculoskeletal: generalized weakness - Psychiatric Psychiatric: appropriate mood/affect, other (Baseline dementia) - Neurologic Neurologic: CNII-XII intact, moves all extremities, other (Alert and oriented x2) - Allied Health Allied health notes reviewed: nursing, social work, case management Plan Activity: no restrictions Diet: low salt, diabetic Additional Instructions: The patient is a 76 YO Female with Vascular Dementia with Behavioral Disturbance, Cerebral Atherosclerosis, HTN, HLD, DM, Metabolic Syndrome, Obesity Hypoventilation Syndrome, Hyperthyroidism, Psychosis presents ED for evaluation. Patient was previously admitted [facility] for psychiatric stabilization. Patient was found by [facility] staff to have decreased responsiveness. Patient discharged from [facility] and send back to ED for evaluation. Daughter reports 5/6 assistance with activities of daily living with increased bedbound status. Patient has palliative performance score of 40%. Patient admitted to hospitalist service for possible stroke work-up. Patient was found to have no neurological deficits. Patient was found to have unremarkable carotid Dopplers. Patient underwent TTE (05/11/2022) revealing EF 50-55% with normal-sized LV, normal LV systolic function, mild concentric LVH, normal LV segmental wall motion, normal RV, normal RV systolic function, normal LA size, normal RA size, and the patient was not found to have ASD or PFO. Patient was found to have an RAYMON secondary to vasomotor nephropathy that is since been resolved with IV fluid resuscitation and avoiding nephrotoxic medi cations. The patient has since been accepted into SNF with hospice services (which was agreed to by the patient's daughter). The patient is medically clear for discharge. Care Plan Goals: Patient is medically cleared for discharge. Assessment: The patient is a 76 YO Female with Vascular Dementia with Behavioral Disturbance, Cerebral Atherosclerosis, HTN, HLD, DM, Metabolic Syndrome, Obesity Hypoventilation Syndrome, Hyperthyroidism, Psychosis presents ED for evaluation. Patient was previously admitted [facility] for psychiatric stabilization. Patient was found by [facility] staff to have decreased responsiveness. Patient discharged from [facility] and send back to ED for evaluation. Daughter reports 5/6 assistance with activities of daily living with increased bedbound status. Patient has palliative performance score of 40%. Patient admitted to hospitalist service for possible stroke work-up. Patient was found to have no neurological deficits. Patient was found to have unremarkable carotid Dopplers. Patient underwent TTE (05/11/2022) revealing EF 50-55% with normal-sized LV, normal LV systolic function, mild concentric LVH, normal LV segmental wall motion, normal RV, normal RV systolic function, normal LA size, normal RA size, and the patient was not found to have ASD or PFO. Patient was found to have an RAYMON secondary to vasomotor nephropathy that is since been resolved with IV fluid resuscitation and avoiding nephrotoxic medications. The patient has since been accepted into SNF with hospice services (which was agreed to by the patient's daughter). The patient is medically clear for discharge. Follow up with: PRIMARY [facility] [Referring] - 3-5 Days
[2022-05-15 16:50] VITALS: BP 106/50
[2022-05-15] MEDS: ACETAMINOPHEN 325 MG TAB PO PRN (17:02)
== END 2022-05-15 19:07 | disposition hospice, inpatient (51) | DRG 683 ==
LOC: EDSTATUS 11:04 → ED 11:04 → 3A 17:49
PROVIDERS: ADMIT Internal Medicine; ATTEND Student in an Organized Health Care Education/Training Program
DX: N17.0 Acute kidney failure with tubular necrosis (principal); F01.51 Vascular dementia, unspecified severity, with behavioral disturbance; E66.2 Morbid (severe) obesity with alveolar hypoventilation; I16.0 Hypertensive urgency; Z20.822 Contact with and (suspected) exposure to COVID-19; E11.9 Type 2 diabetes mellitus without complications; I10 Essential (primary) hypertension; E88.81 Metabolic syndrome and other insulin resistance; I67.2 Cerebral atherosclerosis; E05.90 Thyrotoxicosis, unspecified without thyrotoxic crisis or storm; Z51.5 Encounter for palliative care; E78.2 Mixed hyperlipidemia; Z71.3 Dietary counseling and surveillance; Z83.3 Family history of diabetes mellitus; Z82.49 Family history of ischemic heart disease and other diseases of the circulatory system; Z79.4 Long term (current) use of insulin; Z68.36 Body mass index [BMI] 36.0-36.9, adult
CPT/HCPCS: 36415; 71045; 80048; 80053; 80307; 81001; 82550; 82553; 82570; 82962; 84300; 84484; 85025; 85610; 85670; 85730; 93005; 93306; 93880; 94760; G0378; Q9967; C8929; J1650; J1815; J7030; U0003